=== PATIENT | female | born 1970 | race Caucasian/White ===

== ENCOUNTER 2017-06-03 00:49 | Emergency (ER) | payer MEDICAID ==
[~2017-06-03] VITALS: Ht 160 cm; Wt 78.0 kg
[~2017-06-03 00:49] MED LIST: ALB0.5UD IH; ASPI-1265 PO; CARV-50 PO; CHOL100046 PO; DULO-31 PO; GLIM1TAB46 PO; LISI-600 PO; MULT-955 PO; PANT-47 PO; SUCR1ORA2 PO; SUCR1TAB34 PO; VITA1TAB20 PO
[2017-06-03 01:44] LABS: URINE HCG NEGATIVE (NEG)
[2017-06-03 01:45] LABS: CLARITY,URINE SLIGHTLY CLOUDY (Clear); COLOR,URINE AMBER (Yellow); GLUCOSE, URINE NEGATIVE (Neg); KETONES,URINE TRACE mg/dl (Neg); LEUKOCYTE ESTERASE ,URINE NEGATIVE (Neg); NITRITES, URINE NEGATIVE (Neg); OCCULT BLOOD,URINE NEGATIVE (Neg); PROTEIN,URINE TRACE mg/dl (Neg)
[2017-06-03 01:49] LABS: UA COLLECTION TYPE CLN CATCH MIDSTREAM
[2017-06-03 02:00] LABS: BACTERIA,URINE 2+ /HPF (Neg); MUCUS STRANDS MANY /LPF (Neg); RBC,URINE NONE SEEN /HPF (0-2); SQUAMOUS EPITHELIAL CELL,UR MANY /LPF (FEW); WBC,URINE 0-4 /HPF (0-4)
[2017-06-03] MEDS ORDERED: phenazopyridine 100mg tablet PO ONE (02:35)
[2017-06-03] MEDS ORDERED: ketorolac trometh. 30mg/ml inj. IV ONE (02:35)
[2017-06-03] MEDS ORDERED: ondansetron/PF 4mg/2ml inj IV ONE (03:20)
[2017-06-03 03:29] LABS: BASOPHILS % (AUTO) 0.3 % (0-1); EOSINOPHILS # (AUTO) 0.4 X10'3 (0-0.9); EOSINOPHILS % (AUTO) 4.9 % (0-6); HEMOGLOBIN 11.6 g/dl (12.0-16.0); LYMPHOCYTES # (AUTO) 2.9 X10'3 (1.1-4.8); LYMPHOCYTES % (AUTO) 34.4 % (21-51); MEAN CORPUSCULAR HEMOGLOBIN 30.4 PG (27.0-31.0); MEAN CORPUSCULAR HGB CONC 34.2 % (33.0-36.5); MEAN CORPUSCULAR VOLUME 88.9 FL (78-98); MEAN PLATELET VOLUME 7.3 FL (7.4-10.4); MONOCYTES # (AUTO) 0.6 X10'3 (0-0.9); NEUTROPHILS # (AUTO) 4.5 X10'3 (1.8-7.7); NEUTROPHILS % (AUTO) 53.4 % (42-75); PLATELET COUNT 371 X10'3 (140-440); RED BLOOD COUNT 3.82 X10'6 (4.20-5.60); RED CELL DISTRIBUTION WIDTH 13.4 % (11.5-14.5); WHITE BLOOD COUNT 8.5 X10'3 (4.5-11.0)
[2017-06-03 03:30] LABS: CLARITY,URINE CLEAR (Clear); COLOR,URINE AMBER (Yellow); GLUCOSE, URINE NEGATIVE (Neg); KETONES,URINE TRACE mg/dl (Neg); LEUKOCYTE ESTERASE ,URINE NEGATIVE (Neg); NITRITES, URINE NEGATIVE (Neg); OCCULT BLOOD,URINE NEGATIVE (Neg); PH,URINE 5.5 (4.8-8.0); PROTEIN,URINE NEGATIVE (Neg)
[2017-06-03 03:32] LABS: UA COLLECTION TYPE CLN CATCH MIDSTREAM
[2017-06-03 03:39] LABS: ALBUMIN 3.2 G/DL (3.4-5.0); ANION GAP 7 (8-16); BLOOD UREA NITROGEN 15 MG/DL (7-18); BUN/CREATININE RATIO 21.7 (6.6-38.0); CALCIUM 7.9 MG/DL (8.5-10.1); CHLORIDE 108 MMOL/L (99-107); CREATININE 0.69 MG/DL (0.40-0.90); GLUCOSE 211 MG/DL (70-104); POTASSIUM 3.7 MMOL/L (3.5-5.1); SODIUM 140 MMOL/L (135-145); TOTAL CARBON DIOXIDE 24.9 MMOL/L (24-32); eGFR > 90 ML/MIN
[2017-06-03] MEDS ORDERED: IBUP-1984 PO (04:20)
[2017-06-03] MEDS ORDERED: HYDROcodone/acetaminophen 10/325mg tab PO ONE (04:30)
[2017-06-03 04:37] VITALS: BP 106/71
== END 2017-06-03 04:38 | disposition home or self-care (01) ==
LOC: ER 00:50
DX: M54.9 Dorsalgia, unspecified (principal); E11.65 Type 2 diabetes mellitus with hyperglycemia; E11.42 Type 2 diabetes mellitus with diabetic polyneuropathy; I10 Essential (primary) hypertension; J45.909 Unspecified asthma, uncomplicated; K21.9 Gastro-esophageal reflux disease without esophagitis; I49.9 Cardiac arrhythmia, unspecified; Z90.49 Acquired absence of other specified parts of digestive tract; Z98.84 Bariatric surgery status; Z56.0 Unemployment, unspecified; Z88.8 Allergy status to other drugs, medicaments and biological substances; Z79.82 Long term (current) use of aspirin; Z79.899 Other long term (current) drug therapy
CPT/HCPCS: 36415; 80048; 81001; 81003; 81025; 85025; 96374; 96375; 99284; J1885; J2405

== ENCOUNTER 2017-07-06 17:52 | Emergency (ER) | payer MEDICAID ==
[~2017-07-06] VITALS: Ht 160 cm; Wt 78.4 kg
[2017-07-06 18:33] LABS: BASOPHILS % (AUTO) 0.3 % (0-1); EOSINOPHILS # (AUTO) 0.1 X10'3 (0-0.9); EOSINOPHILS % (AUTO) 2.4 % (0-6); HEMATOCRIT 37.8 % (35.0-45.0); HEMOGLOBIN 13.4 g/dl (12.0-16.0); LYMPHOCYTES # (AUTO) 1.3 X10'3 (1.1-4.8); LYMPHOCYTES % (AUTO) 25.9 % (21-51); MEAN CORPUSCULAR HEMOGLOBIN 30.8 PG (27.0-31.0); MEAN CORPUSCULAR HGB CONC 35.5 % (33.0-36.5); MEAN CORPUSCULAR VOLUME 86.7 FL (78-98); MEAN PLATELET VOLUME 6.8 FL (7.4-10.4); MONOCYTES # (AUTO) 0.9 X10'3 (0-0.9); MONOCYTES % (AUTO) 18.3 % (2-12); NEUTROPHILS # (AUTO) 2.6 X10'3 (1.8-7.7); NEUTROPHILS % (AUTO) 53.1 % (42-75); PLATELET COUNT 349 X10'3 (140-440); RED BLOOD COUNT 4.36 X10'6 (4.20-5.60); RED CELL DISTRIBUTION WIDTH 12.9 % (11.5-14.5); WHITE BLOOD COUNT 4.9 X10'3 (4.5-11.0)
[2017-07-06 18:39] LABS: CLARITY,URINE SLIGHTLY CLOUDY (Clear); COLOR,URINE YELLOW (Yellow); GLUCOSE, URINE NEGATIVE (Neg); KETONES,URINE 15 mg/dl (Neg); LEUKOCYTE ESTERASE ,URINE NEGATIVE (Neg); NITRITES, URINE NEGATIVE (Neg); OCCULT BLOOD,URINE NEGATIVE (Neg); PROTEIN,URINE NEGATIVE (Neg); URINE HCG NEGATIVE (NEG)
[2017-07-06 18:44] LABS: INR 0.9 INR; PROTHROMBIN TIME 9.7 SECONDS (9.0-12.0)
[2017-07-06 18:45] LABS: UA COLLECTION TYPE CLN CATCH MIDSTREAM
[2017-07-06 18:48] LABS: MUCUS STRANDS MANY /LPF (Neg); SQUAMOUS EPITHELIAL CELL,UR MANY /LPF (FEW)
[2017-07-06 18:49] LABS: ALANINE AMINOTRANSFERASE 35 U/L (12-78); ALBUMIN 3.6 G/DL (3.4-5.0); ALBUMIN/GLOBULIN RATIO 0.9 (1.1-1.5); ALKALINE PHOSPHATASE 39 IU/L (46-116); ANION GAP 11 (8-16); ASPARTATE AMINO TRANSFERASE 23 U/L (10-37); BILIRUBIN,TOTAL 0.4 MG/DL (0.1-1.0); BLOOD UREA NITROGEN 14 MG/DL (7-18); BUN/CREATININE RATIO 19.4 (6.6-38.0); CALCIUM 8.7 MG/DL (8.5-10.1); CHLORIDE 103 MMOL/L (99-107); CREATININE 0.72 MG/DL (0.40-0.90); GLUCOSE 121 MG/DL (70-104); POTASSIUM 3.4 MMOL/L (3.5-5.1); SODIUM 141 MMOL/L (135-145); TOTAL CARBON DIOXIDE 26.7 MMOL/L (24-32); TOTAL PROTEIN 7.5 G/DL (6.4-8.2); eGFR 88 ML/MIN
[2017-07-06 18:50] LABS: BACTERIA,URINE FEW /HPF (Neg); HYALINE CASTS 0-3 /LPF (NEGATIVE); RBC,URINE 0-2 /HPF (0-2); WBC,URINE 0-4 /HPF (0-4)
[2017-07-06] MEDS ORDERED: ondansetron/PF 4mg/2ml inj IV ONE (20:55)
[2017-07-06] MEDS ORDERED: normal saline 1000ml 1,000 ML IV ONE (20:55)
[2017-07-06] MEDS ORDERED: metoclopramide 5 mg/ml inj IM ONE (21:30)
[2017-07-06] MEDS ORDERED: ONDA8TAB6 PO (21:36)
[2017-07-06 21:48] VITALS: BP 135/77
== END 2017-07-06 22:12 | disposition home or self-care (01) ==
LOC: ER 17:52
DX: J06.9 Acute upper respiratory infection, unspecified (principal); M54.5 Low back pain; E11.42 Type 2 diabetes mellitus with diabetic polyneuropathy; I49.9 Cardiac arrhythmia, unspecified; I10 Essential (primary) hypertension; J45.909 Unspecified asthma, uncomplicated; K21.9 Gastro-esophageal reflux disease without esophagitis; Z90.49 Acquired absence of other specified parts of digestive tract; Z98.84 Bariatric surgery status; Z56.0 Unemployment, unspecified; Z88.8 Allergy status to other drugs, medicaments and biological substances; Z79.82 Long term (current) use of aspirin; Z79.899 Other long term (current) drug therapy
CPT/HCPCS: 36415; 80053; 81001; 81025; 85025; 85610; 96361; 96372; 96374; 99284; J2405; J2765; J7030

== ENCOUNTER 2017-08-25 14:06 | Emergency (ER) | payer MEDICAID ==
[~2017-08-25] VITALS: Ht 162.6 cm; Wt 70.0 kg
[~2017-08-25 14:06] MED LIST changes: +ONDA8TAB6 PO
[2017-08-25 14:22] VITALS: BP 124/69
[2017-08-25 14:58] LABS: BASOPHILS % (AUTO) 0.2 % (0-1); EOSINOPHILS # (AUTO) 0.4 X10'3 (0-0.9); EOSINOPHILS % (AUTO) 4.2 % (0-6); HEMATOCRIT 41.1 % (35.0-45.0); HEMOGLOBIN 14.2 g/dl (12.0-16.0); LYMPHOCYTES # (AUTO) 2.9 X10'3 (1.1-4.8); MEAN CORPUSCULAR HGB CONC 34.6 % (33.0-36.5); MEAN CORPUSCULAR VOLUME 89.6 FL (78-98); MEAN PLATELET VOLUME 7.3 FL (7.4-10.4); MONOCYTES # (AUTO) 0.6 X10'3 (0-0.9); MONOCYTES % (AUTO) 5.9 % (2-12); NEUTROPHILS % (AUTO) 60.7 % (42-75); PLATELET COUNT 435 X10'3 (140-440); RED BLOOD COUNT 4.59 X10'6 (4.20-5.60); RED CELL DISTRIBUTION WIDTH 12.1 % (11.5-14.5); WHITE BLOOD COUNT 9.9 X10'3 (4.5-11.0)
[2017-08-25 15:16] LABS: ALANINE AMINOTRANSFERASE 25 U/L (12-78); ALBUMIN 4.1 G/DL (3.4-5.0); ALBUMIN/GLOBULIN RATIO 1.1 (1.1-1.5); ALKALINE PHOSPHATASE 58 IU/L (46-116); ASPARTATE AMINO TRANSFERASE 19 U/L (10-37); BILIRUBIN,TOTAL 0.4 MG/DL (0.1-1.0); BLOOD UREA NITROGEN 17 MG/DL (7-18); BUN/CREATININE RATIO 23.3 (6.6-38.0); CHLORIDE 102 MMOL/L (99-107); CREATININE 0.73 MG/DL (0.40-0.90); LIPASE 219 U/L (73-393); POTASSIUM 3.7 MMOL/L (3.5-5.1); TOTAL CARBON DIOXIDE 26.3 MMOL/L (24-32); TOTAL PROTEIN 7.9 G/DL (6.4-8.2); eGFR 86 ML/MIN
[2017-08-25 15:18] LABS: ANION GAP 14 (8-16); GLUCOSE 133 MG/DL (70-104); SODIUM 142 MMOL/L (135-145)
[2017-08-25 15:26] LABS: CLARITY,URINE CLEAR (Clear); COLOR,URINE YELLOW (Yellow); GLUCOSE, URINE NEGATIVE (Neg); KETONES,URINE 40 mg/dl (Neg); LEUKOCYTE ESTERASE ,URINE NEGATIVE (Neg); NITRITES, URINE NEGATIVE (Neg); OCCULT BLOOD,URINE NEGATIVE (Neg); PH,URINE 5.5 (4.8-8.0); PROTEIN,URINE NEGATIVE (Neg)
[2017-08-25 15:27] LABS: URINE HCG NEGATIVE (NEG)
[2017-08-25 15:32] LABS: UA COLLECTION TYPE CLN CATCH MIDSTREAM
[2017-08-25] MEDS ORDERED: ondansetron/PF 4mg/2ml inj IV ONE (15:35)
[2017-08-25] MEDS ORDERED: morphine 4 MG/ML inj SYRINge IV ONE (15:35)
[2017-08-25] MEDS ORDERED: normal saline 1000ML IV soln IVB ONE (15:35)
[2017-08-25] MEDS ORDERED: ONDA4TAB9 PO (15:55)
[2017-08-25] MEDS ORDERED: HYDR-3965 PO (15:55)
[2017-08-25] MEDS ORDERED: HYDROcodone/acetaminophen 10/325mg tab PO ONE (16:30)
[2017-08-25] MEDS ORDERED: ondansetron 4mg rapidly disintigrating tab PO ONE (16:30)
== END 2017-08-25 16:51 | disposition home or self-care (01) ==
LOC: ER 14:07
DX: G89.29 Other chronic pain (principal); R10.9 Unspecified abdominal pain; Z90.49 Acquired absence of other specified parts of digestive tract; I10 Essential (primary) hypertension; J45.909 Unspecified asthma, uncomplicated; K21.9 Gastro-esophageal reflux disease without esophagitis; E11.42 Type 2 diabetes mellitus with diabetic polyneuropathy; Z88.8 Allergy status to other drugs, medicaments and biological substances; Z79.82 Long term (current) use of aspirin; Z79.899 Other long term (current) drug therapy; Z56.0 Unemployment, unspecified
CPT/HCPCS: 36415; 74176; 80053; 81003; 81025; 83690; 85025; 99285; J2270; J2405; J7030

== ENCOUNTER 2017-09-25 14:31 | Emergency (ER) | payer MEDICAID ==
[~2017-09-25 14:31] MED LIST changes: +HYDR-3965 PO; +ONDA4TAB9 PO
[2017-09-25] MEDS ORDERED: CYCL-1 PO (15:34)
[2017-09-25] MEDS ORDERED: orphenadrine citrate 60mg/2ml inj. IM ONE (15:35)
[2017-09-25] MEDS ORDERED: ketorolac trometh inj. 60 MG/2 ML VIAL IM ONE (15:35)
[2017-09-25 15:55] VITALS: BP 125/89
== END 2017-09-25 15:58 | disposition home or self-care (01) ==
LOC: ER 14:32
DX: S63.616A Unspecified sprain of right little finger, initial encounter (principal); G89.29 Other chronic pain; M25.511 Pain in right shoulder; I10 Essential (primary) hypertension; J45.909 Unspecified asthma, uncomplicated; E11.42 Type 2 diabetes mellitus with diabetic polyneuropathy; K21.9 Gastro-esophageal reflux disease without esophagitis; Z88.8 Allergy status to other drugs, medicaments and biological substances; Z79.82 Long term (current) use of aspirin; Z79.899 Other long term (current) drug therapy; Z90.49 Acquired absence of other specified parts of digestive tract; Z56.0 Unemployment, unspecified; W10.8XXA Fall (on) (from) other stairs and steps, initial encounter; Y93.89 Activity, other specified; Y92.89 Other specified places as the place of occurrence of the external cause; Y99.8 Other external cause status
CPT/HCPCS: 29130; 73130; 96372; 99284; J1885; J2360

== ENCOUNTER 2017-11-21 16:16 | Emergency (ER) | payer MEDICAID ==
[~2017-11-21] VITALS: Ht 160 cm; Wt 76.4 kg
[~2017-11-21 16:16] MED LIST changes: +CYCL-1 PO; -HYDR-3965 PO; -ONDA4TAB9 PO
[2017-11-21] MEDS ORDERED: famotidine/PF 10 mg/ml inj IV ONE (16:40)
[2017-11-21] MEDS ORDERED: ketorolac trometh. 30mg/ml inj. IV ONE (16:40)
[2017-11-21] MEDS ORDERED: normal saline 1000ML IV soln IVB ONE (16:40)
[2017-11-21] MEDS ORDERED: ondansetron/PF 4mg/2ml inj IV ONE (16:40)
[2017-11-21 16:50] LABS: BASOPHILS % (AUTO) 0.5 % (0-1); EOSINOPHILS # (AUTO) 0.4 X10'3 (0-0.9); EOSINOPHILS % (AUTO) 4.7 % (0-6); HEMOGLOBIN 12.1 g/dl (12.0-16.0); LYMPHOCYTES # (AUTO) 3.7 X10'3 (1.1-4.8); LYMPHOCYTES % (AUTO) 45.8 % (21-51); MEAN CORPUSCULAR HEMOGLOBIN 30.2 PG (27.0-31.0); MEAN CORPUSCULAR HGB CONC 34.5 % (33.0-36.5); MEAN CORPUSCULAR VOLUME 87.7 FL (78-98); MEAN PLATELET VOLUME 6.8 FL (7.4-10.4); MONOCYTES # (AUTO) 0.6 X10'3 (0-0.9); MONOCYTES % (AUTO) 6.9 % (2-12); NEUTROPHILS # (AUTO) 3.4 X10'3 (1.8-7.7); NEUTROPHILS % (AUTO) 42.1 % (42-75); PLATELET COUNT 396 X10'3 (140-440); RED BLOOD COUNT 3.99 X10'6 (4.20-5.60); RED CELL DISTRIBUTION WIDTH 12.9 % (11.5-14.5)
[2017-11-21 17:05] LABS: ALANINE AMINOTRANSFERASE 22 U/L (12-78); ALBUMIN 3.6 G/DL (3.4-5.0); ALBUMIN/GLOBULIN RATIO 1.1 (1.1-1.5); ALKALINE PHOSPHATASE 42 IU/L (46-116); ANION GAP 8 (8-16); ASPARTATE AMINO TRANSFERASE 11 U/L (10-37); BILIRUBIN,TOTAL 0.3 MG/DL (0.1-1.0); BLOOD UREA NITROGEN 14 MG/DL (7-18); BUN/CREATININE RATIO 20.9 (6.6-38.0); CALCIUM 8.3 MG/DL (8.5-10.1); CHLORIDE 103 MMOL/L (99-107); CREATININE 0.67 MG/DL (0.40-0.90); GLUCOSE 103 MG/DL (70-104); LIPASE 165 U/L (73-393); POTASSIUM 3.8 MMOL/L (3.5-5.1); SODIUM 140 MMOL/L (135-145); TOTAL CARBON DIOXIDE 29.1 MMOL/L (24-32); eGFR > 90 ML/MIN
[2017-11-21] MEDS ORDERED: mag hydrox/Alum hydrox/simeth 30ml oral suspension PO ONE (17:45)
[2017-11-21] MEDS ORDERED: LIDOcaine Viscous 15ml cup PO ONE (17:45)
[2017-11-21] MEDS ORDERED: sucralfate 1 gm tablet PO ONE (17:45)
[2017-11-21] MEDS ORDERED: ONDA4TAB9 PO (17:46)
[2017-11-21] MEDS ORDERED: SUCR1TAB34 PO (17:46)
[2017-11-21] MEDS ORDERED: PANT20TA3 PO (17:46)
[2017-11-21] MEDS: morphine 4 MG/ML inj SYRINge IV PRN ×2 (17:51→20:54)
[2017-11-21 19:52] VITALS: BP 168/94
[2017-11-21 20:51] LABS: CLARITY,URINE CLEAR (Clear); GLUCOSE, URINE NEGATIVE (Neg); KETONES,URINE NEGATIVE (Neg); LEUKOCYTE ESTERASE ,URINE NEGATIVE (Neg); NITRITES, URINE NEGATIVE (Neg); OCCULT BLOOD,URINE NEGATIVE (Neg); PROTEIN,URINE NEGATIVE (Neg)
[2017-11-21 20:57] LABS: COLOR,URINE DARK YELLOW (Yellow); UA COLLECTION TYPE CLN CATCH MIDSTREAM
== END 2017-11-21 21:13 | disposition home or self-care (01) ==
LOC: ER 16:17
DX: R10.13 Epigastric pain (principal); R10.11 Right upper quadrant pain; E78.00 Pure hypercholesterolemia, unspecified; I10 Essential (primary) hypertension; J45.909 Unspecified asthma, uncomplicated; K21.9 Gastro-esophageal reflux disease without esophagitis; E11.42 Type 2 diabetes mellitus with diabetic polyneuropathy; Z98.84 Bariatric surgery status; Z56.0 Unemployment, unspecified; Z79.82 Long term (current) use of aspirin; Z90.49 Acquired absence of other specified parts of digestive tract; Z79.899 Other long term (current) drug therapy; Z88.6 Allergy status to analgesic agent
CPT/HCPCS: 36415; 71045; 76705; 80053; 81003; 83690; 84484; 85025; 93005; 96374; 96375; 96376; 99285; J1885; J2270; J3490; J7030; J2405

== ENCOUNTER 2018-03-26 09:23 | Emergency (ER) | payer MEDICAID ==
[~2018-03-26] VITALS: Ht 162.6 cm; Wt 79.8 kg
[~2018-03-26 09:23] MED LIST changes: +PANT20TA3 PO
[2018-03-26 10:15] LABS: URINE HCG NEGATIVE (NEG)
[2018-03-26] MEDS ORDERED: normal saline 1000ML IV soln IVB ONE (10:20)
[2018-03-26] MEDS ORDERED: ketorolac tromethamine 15mg/ml inj. IV ONE (10:20)
[2018-03-26] MEDS ORDERED: ondansetron/PF 4mg/2ml inj IV ONE ×3 (10:20→13:45)
[2018-03-26] MEDS ORDERED: ketorolac trometh. 30mg/ml inj. IV ONE (10:50)
[2018-03-26 11:02] LABS: BASOPHILS % (AUTO) 0.3 % (0-1); EOSINOPHILS # (AUTO) 0.3 X10'3 (0-0.9); EOSINOPHILS % (AUTO) 2.7 % (0-6); HEMATOCRIT 38.6 % (35.0-45.0); LYMPHOCYTES % (AUTO) 17.6 % (21-51); MEAN CORPUSCULAR HEMOGLOBIN 30.3 PG (27.0-31.0); MEAN CORPUSCULAR HGB CONC 33.6 % (33.0-36.5); MEAN CORPUSCULAR VOLUME 90.1 FL (78-98); MEAN PLATELET VOLUME 7.7 FL (7.4-10.4); MONOCYTES # (AUTO) 0.6 X10'3 (0-0.9); MONOCYTES % (AUTO) 4.9 % (2-12); NEUTROPHILS # (AUTO) 8.5 X10'3 (1.8-7.7); NEUTROPHILS % (AUTO) 74.5 % (42-75); PLATELET COUNT 385 X10'3 (140-440); RED BLOOD COUNT 4.28 X10'6 (4.20-5.60); RED CELL DISTRIBUTION WIDTH 12.7 % (11.5-14.5); WHITE BLOOD COUNT 11.4 X10'3 (4.5-11.0)
--- NOTE | 2018-03-26 11:19 | NUR ---
PT TO THE BATHROOM TO GIVE URINE SAMPLE. I CALLED LAB AND THEY REPORTED THAT THE FIRST URINE SAMPLE DID NO HAVE ENOUGH URINE IN IT FOR A URINALYSIS, DR ROBISON NOTIFIED.
[2018-03-26 11:25] LABS: ALANINE AMINOTRANSFERASE 25 U/L (12-78); ALBUMIN 3.8 G/DL (3.4-5.0); ALKALINE PHOSPHATASE 41 IU/L (46-116); ANION GAP 13 (8-16); ASPARTATE AMINO TRANSFERASE 14 U/L (10-37); BILIRUBIN,TOTAL 0.5 MG/DL (0.1-1.0); BLOOD UREA NITROGEN 10 MG/DL (7-18); BUN/CREATININE RATIO 15.6 (6.6-38.0); CALCIUM 8.5 MG/DL (8.5-10.1); CHLORIDE 102 MMOL/L (99-107); CREATININE 0.64 MG/DL (0.40-0.90); GLUCOSE 143 MG/DL (70-104); POTASSIUM 4.1 MMOL/L (3.5-5.1); SODIUM 141 MMOL/L (135-145); TOTAL CARBON DIOXIDE 25.8 MMOL/L (24-32); TOTAL PROTEIN 7.5 G/DL (6.4-8.2); eGFR > 90 ML/MIN
[2018-03-26 11:32] LABS: CLARITY,URINE CLOUDY (Clear); COLOR,URINE ORANGE (Yellow); UA COLLECTION TYPE CLN CATCH MIDSTREAM
[2018-03-26 12:00] LABS: BACTERIA,URINE FEW /HPF (Neg); WBC,URINE 50-100 /HPF (0-4)
[2018-03-26 12:01] LABS: SQUAMOUS EPITHELIAL CELL,UR FEW /LPF (FEW)
[2018-03-26 12:02] LABS: RENAL CELLS, URINE FEW /HPF; TRANSITIONAL EPI CELLS,URINE FEW /HPF; WBC CLUMPS,URINE FEW /HPF (NEGATIVE)
[2018-03-26] MEDS ORDERED: CefTRIAXone/D5W-Rocephin 1gm 50 ML IV ONE (12:10)
[2018-03-26] MEDS ORDERED: morphine 4 MG/ML inj SYRINge IV ONE ×2 (12:15→13:45)
--- NOTE | 2018-03-26 12:58 | NUR ---
PT TO CT.
[2018-03-26] MEDS ORDERED: CEPH500C5 PO (13:46)
[2018-03-26] MEDS ORDERED: ONDA4TAB12 PO (13:46)
[2018-03-26] MEDS ORDERED: ACET-3067 PO (13:46)
[2018-03-26 15:08] VITALS: BP 132/71
== END 2018-03-26 15:10 | disposition home or self-care (01) ==
LOC: ER 09:24
DX: N83.291 Other ovarian cyst, right side (principal); N10 Acute pyelonephritis; E11.42 Type 2 diabetes mellitus with diabetic polyneuropathy; E78.00 Pure hypercholesterolemia, unspecified; I10 Essential (primary) hypertension; J45.909 Unspecified asthma, uncomplicated; K21.9 Gastro-esophageal reflux disease without esophagitis; Z90.49 Acquired absence of other specified parts of digestive tract; Z56.0 Unemployment, unspecified; Z98.84 Bariatric surgery status; Z88.6 Allergy status to analgesic agent; Z79.82 Long term (current) use of aspirin; Z79.899 Other long term (current) drug therapy
CPT/HCPCS: 36415; 71045; 74176; 80053; 81001; 81025; 83605; 84145; 85025; 87040; 87088; 96365; 96375; 96376; 99284; J0696; J1885; J2270; J2405; J7030

== ENCOUNTER 2018-04-03 20:46 | Emergency (ER) | payer MEDICAID ==
[~2018-04-03] VITALS: Ht 162.6 cm; Wt 82.9 kg
[~2018-04-03 20:46] MED LIST changes: +CEPH500C5 PO; +ONDA4TAB12 PO
[2018-04-03 21:39] LABS: URINE HCG NEGATIVE (NEG)
[2018-04-03 21:43] LABS: CLARITY,URINE CLEAR (Clear); COLOR,URINE YELLOW (Yellow); GLUCOSE, URINE 250 mg/dl (Neg); KETONES,URINE TRACE mg/dl (Neg); LEUKOCYTE ESTERASE ,URINE NEGATIVE (Neg); NITRITES, URINE NEGATIVE (Neg); OCCULT BLOOD,URINE NEGATIVE (Neg); PROTEIN,URINE NEGATIVE (Neg); UA COLLECTION TYPE CLN CATCH MIDSTREAM
[2018-04-03 22:42] LABS: BASOPHILS % (AUTO) 0.4 % (0-1); EOSINOPHILS # (AUTO) 0.4 X10'3 (0-0.9); EOSINOPHILS % (AUTO) 5.3 % (0-6); HEMATOCRIT 35.5 % (35.0-45.0); LYMPHOCYTES # (AUTO) 3.4 X10'3 (1.1-4.8); LYMPHOCYTES % (AUTO) 47.7 % (21-51); MEAN CORPUSCULAR HEMOGLOBIN 30.2 PG (27.0-31.0); MEAN CORPUSCULAR HGB CONC 33.9 % (33.0-36.5); MEAN PLATELET VOLUME 6.9 FL (7.4-10.4); MONOCYTES # (AUTO) 0.5 X10'3 (0-0.9); MONOCYTES % (AUTO) 7.7 % (2-12); NEUTROPHILS # (AUTO) 2.8 X10'3 (1.8-7.7); NEUTROPHILS % (AUTO) 38.9 % (42-75); PLATELET COUNT 392 X10'3 (140-440); RED BLOOD COUNT 3.99 X10'6 (4.20-5.60); RED CELL DISTRIBUTION WIDTH 13.5 % (11.5-14.5); WHITE BLOOD COUNT 7.1 X10'3 (4.5-11.0)
[2018-04-03] MEDS ORDERED: ondansetron 4mg rapidly disintigrating tab PO ONE (22:55)
[2018-04-03] MEDS ORDERED: HYDROcodone/acetaminophen 10/325mg tab PO ONE (22:55)
[2018-04-03] MEDS ORDERED: phenazopyridine 100mg tablet PO ONE (22:55)
[2018-04-03 22:59] LABS: ALANINE AMINOTRANSFERASE 24 U/L (12-78); ALBUMIN 3.3 G/DL (3.4-5.0); ALKALINE PHOSPHATASE 53 IU/L (46-116); ANION GAP 7 (8-16); ASPARTATE AMINO TRANSFERASE 12 U/L (10-37); BILIRUBIN,TOTAL 0.3 MG/DL (0.1-1.0); BLOOD UREA NITROGEN 13 MG/DL (7-18); BUN/CREATININE RATIO 16.5 (6.6-38.0); CHLORIDE 105 MMOL/L (99-107); CREATININE 0.79 MG/DL (0.40-0.90); GLUCOSE 215 MG/DL (70-104); SODIUM 142 MMOL/L (135-145); TOTAL CARBON DIOXIDE 29.7 MMOL/L (24-32); TOTAL PROTEIN 6.5 G/DL (6.4-8.2); eGFR 79 ML/MIN
[2018-04-03] MEDS ORDERED: SULF1TAB49 PO (23:11)
[2018-04-03 23:25] VITALS: BP 134/84
== END 2018-04-03 23:29 | disposition home or self-care (01) ==
LOC: ER 20:47
DX: R10.30 Lower abdominal pain, unspecified (principal); M54.5 Low back pain; E11.42 Type 2 diabetes mellitus with diabetic polyneuropathy; E78.00 Pure hypercholesterolemia, unspecified; I10 Essential (primary) hypertension; J45.909 Unspecified asthma, uncomplicated; K21.9 Gastro-esophageal reflux disease without esophagitis; Z90.49 Acquired absence of other specified parts of digestive tract; Z98.0 Intestinal bypass and anastomosis status; Z98.890 Other specified postprocedural states; Z56.0 Unemployment, unspecified; Z88.8 Allergy status to other drugs, medicaments and biological substances; Z79.82 Long term (current) use of aspirin; Z79.2 Long term (current) use of antibiotics; Z79.899 Other long term (current) drug therapy
CPT/HCPCS: 36415; 80053; 81003; 81025; 84145; 85025; 99284

== ENCOUNTER 2018-05-15 16:25 | Emergency (ER) | payer MEDICAID ==
[~2018-05-15] VITALS: Ht 160 cm; Wt 81.0 kg
[~2018-05-15 16:25] MED LIST changes: -CEPH500C5 PO
[2018-05-15] MEDS ORDERED: HYDROcodone/acetaminophen 5mg/325mg tablet PO ONE (16:50)
[2018-05-15 17:12] LABS: BASOPHILS % (AUTO) 0.6 % (0-1); EOSINOPHILS # (AUTO) 0.4 X10'3 (0-0.9); EOSINOPHILS % (AUTO) 5.6 % (0-6); HEMATOCRIT 35.1 % (35.0-45.0); HEMOGLOBIN 12.3 g/dl (12.0-16.0); LYMPHOCYTES # (AUTO) 2.8 X10'3 (1.1-4.8); LYMPHOCYTES % (AUTO) 37.7 % (21-51); MEAN CORPUSCULAR HEMOGLOBIN 30.7 PG (27.0-31.0); MEAN CORPUSCULAR HGB CONC 35.1 g/dL (33.0-36.5); MEAN CORPUSCULAR VOLUME 87.6 FL (78-98); MEAN PLATELET VOLUME 6.8 FL (7.4-10.4); MONOCYTES # (AUTO) 0.5 X10'3 (0-0.9); MONOCYTES % (AUTO) 7.1 % (2-12); NEUTROPHILS # (AUTO) 3.6 X10'3 (1.8-7.7); PLATELET COUNT 397 X10'3 (140-440); RED BLOOD COUNT 4.01 X10'6 (4.20-5.60); RED CELL DISTRIBUTION WIDTH 12.4 % (11.5-14.5); WHITE BLOOD COUNT 7.4 X10'3 (4.5-11.0)
[2018-05-15 17:25] LABS: CLARITY,URINE CLEAR (Clear); COLOR,URINE YELLOW (Yellow); GLUCOSE, URINE NEGATIVE (Neg); KETONES,URINE 40 mg/dl (Neg); LEUKOCYTE ESTERASE ,URINE NEGATIVE (Neg); NITRITES, URINE NEGATIVE (Neg); OCCULT BLOOD,URINE NEGATIVE (Neg); PROTEIN,URINE NEGATIVE (Neg); UA COLLECTION TYPE CLN CATCH MIDSTREAM; URINE HCG NEGATIVE (NEG)
[2018-05-15 17:41] LABS: ALANINE AMINOTRANSFERASE 16 U/L (12-78); ALBUMIN 3.7 G/DL (3.4-5.0); ALBUMIN/GLOBULIN RATIO 1.1 (1.1-1.5); ALKALINE PHOSPHATASE 53 IU/L (46-116); ANION GAP 11 (8-16); ASPARTATE AMINO TRANSFERASE 8 U/L (10-37); BILIRUBIN,TOTAL 0.2 MG/DL (0.1-1.0); BLOOD UREA NITROGEN 20 MG/DL (7-18); BUN/CREATININE RATIO 29.4 (6.6-38.0); CALCIUM 8.9 MG/DL (8.5-10.1); CHLORIDE 106 MMOL/L (99-107); CREATININE 0.68 MG/DL (0.40-0.90); GLUCOSE 127 MG/DL (70-104); POTASSIUM 3.7 MMOL/L (3.5-5.1); SODIUM 142 MMOL/L (135-145); TOTAL CARBON DIOXIDE 25.3 MMOL/L (24-32); TOTAL PROTEIN 7.2 G/DL (6.4-8.2); eGFR > 90 ML/MIN
[2018-05-15 17:45] VITALS: BP 131/71
== END 2018-05-15 17:53 | disposition home or self-care (01) ==
LOC: ER 16:25
DX: R10.11 Right upper quadrant pain (principal); R10.31 Right lower quadrant pain; E78.00 Pure hypercholesterolemia, unspecified; I10 Essential (primary) hypertension; K21.9 Gastro-esophageal reflux disease without esophagitis; J45.909 Unspecified asthma, uncomplicated; E11.40 Type 2 diabetes mellitus with diabetic neuropathy, unspecified; Z88.8 Allergy status to other drugs, medicaments and biological substances; Z79.82 Long term (current) use of aspirin; Z79.899 Other long term (current) drug therapy; Z56.0 Unemployment, unspecified; Z87.440 Personal history of urinary (tract) infections; Z90.49 Acquired absence of other specified parts of digestive tract; Z98.84 Bariatric surgery status
CPT/HCPCS: 36415; 74018; 80053; 81003; 81025; 85025; 99284

== ENCOUNTER 2018-06-20 15:19 | Emergency (ER) | payer MEDICAID ==
[~2018-06-20] VITALS: Ht 162.6 cm; Wt 77.3 kg
[2018-06-20 16:22] LABS: CLARITY,URINE CLEAR (Clear); COLOR,URINE STRAW (Yellow); GLUCOSE, URINE NEGATIVE (Neg); KETONES,URINE 15 mg/dl (Neg); LEUKOCYTE ESTERASE ,URINE NEGATIVE (Neg); NITRITES, URINE NEGATIVE (Neg); OCCULT BLOOD,URINE NEGATIVE (Neg); PH,URINE 5.5 (4.8-8.0); PROTEIN,URINE NEGATIVE (Neg); UROBILINOGEN,URINE 0.2 E.U/dL (0.2-1.0)
[2018-06-20 16:24] LABS: UA COLLECTION TYPE CLN CATCH MIDSTREAM
[2018-06-20 16:25] LABS: BASOPHILS # (AUTO) 0.1 X10'3 (0-0.2); BASOPHILS % (AUTO) 0.7 % (0-1); EOSINOPHILS # (AUTO) 0.4 X10'3 (0-0.9); EOSINOPHILS % (AUTO) 4.9 % (0-6); HEMATOCRIT 40.6 % (35.0-45.0); LYMPHOCYTES # (AUTO) 3.5 X10'3 (1.1-4.8); MEAN CORPUSCULAR HEMOGLOBIN 29.9 PG (27.0-31.0); MEAN CORPUSCULAR HGB CONC 34.4 g/dL (33.0-36.5); MEAN PLATELET VOLUME 7.3 FL (7.4-10.4); MONOCYTES # (AUTO) 0.6 X10'3 (0-0.9); NEUTROPHILS # (AUTO) 4.1 X10'3 (1.8-7.7); NEUTROPHILS % (AUTO) 47.4 % (42-75); PLATELET COUNT 420 X10'3 (140-440); RED BLOOD COUNT 4.67 X10'6 (4.20-5.60); RED CELL DISTRIBUTION WIDTH 12.9 % (11.5-14.5); WHITE BLOOD COUNT 8.7 X10'3 (4.5-11.0)
[2018-06-20 16:38] LABS: ALANINE AMINOTRANSFERASE 24 U/L (12-78); ALBUMIN/GLOBULIN RATIO 1.1 (1.1-1.5); ALKALINE PHOSPHATASE 44 IU/L (46-116); AMYLASE 57 U/L (25-115); ANION GAP 8 (8-16); ASPARTATE AMINO TRANSFERASE 13 U/L (10-37); BILIRUBIN,TOTAL 0.3 MG/DL (0.1-1.0); BLOOD UREA NITROGEN 17 MG/DL (7-18); BUN/CREATININE RATIO 23.3 (6.6-38.0); CALCIUM 9.3 MG/DL (8.5-10.1); CHLORIDE 102 MMOL/L (99-107); CREATININE 0.73 MG/DL (0.40-0.90); GLUCOSE 125 MG/DL (70-104); LIPASE 300 U/L (73-393); SODIUM 138 MMOL/L (135-145); TOTAL CARBON DIOXIDE 28.2 MMOL/L (24-32); TOTAL PROTEIN 7.7 G/DL (6.4-8.2); eGFR 86 ML/MIN
[2018-06-20 16:40] LABS: INR 0.9 INR; PROTHROMBIN TIME 9.4 SECONDS (9.0-12.0)
[2018-06-20] MEDS ORDERED: ZOLP10TA PO (17:28)
[2018-06-20] MEDS ORDERED: morphine 4 MG/ML inj SYRINge IV ONE (17:30)
[2018-06-20] MEDS ORDERED: normal saline 1000ML IV soln IVB ONE (17:30)
[2018-06-20] MEDS ORDERED: LORazepam 2 mg/ml vial IV ONE (17:30)
[2018-06-20] MEDS ORDERED: pantoprazole 40 MG vial IV ONE (17:30)
[2018-06-20] MEDS ORDERED: morphine 2 MG/ML inj. syringe IV PRN (17:30)
[2018-06-20] MEDS ORDERED: ondansetron/PF 4mg/2ml inj IV ONE (17:30)
[2018-06-20] MEDS ORDERED: PANT20TA3 PO (17:31)
[2018-06-20 18:30] VITALS: BP 135/88
--- NOTE | 2018-06-20 22:04 | NUR ---
Heidi rush in EDM - 06/20/18 at 2222 by MARIA E PATIENT ELOPED CALLED WALLY PHONE # LEFT MESSAGE STATING YOU HAVE ELOPED WITH AN IV PLEASE COME BACK TO HAVE IT DC'D AND TO RECEIVING TANK OPERATOR ABX PERSCRIPTION FOR ED DX
== END 2018-06-20 19:41 | disposition home or self-care (01) ==
LOC: ER 15:19
DX: G89.29 Other chronic pain (principal); R10.11 Right upper quadrant pain; R10.31 Right lower quadrant pain; E78.00 Pure hypercholesterolemia, unspecified; I10 Essential (primary) hypertension; G62.9 Polyneuropathy, unspecified; J45.909 Unspecified asthma, uncomplicated; K21.9 Gastro-esophageal reflux disease without esophagitis; E11.9 Type 2 diabetes mellitus without complications; Z90.49 Acquired absence of other specified parts of digestive tract; Z98.890 Other specified postprocedural states; Z56.0 Unemployment, unspecified; Z88.8 Allergy status to other drugs, medicaments and biological substances; Z79.899 Other long term (current) drug therapy
CPT/HCPCS: 36415; 74018; 80053; 81003; 82150; 83690; 85025; 85610; 96374; 96375; 96376; 99284; C9113; J2060; J2270; J2405; J7030

== ENCOUNTER 2018-06-24 13:30 | Emergency (ER) | payer MEDICAID ==
[~2018-06-24] VITALS: Ht 165.1 cm; Wt 75.0 kg
[~2018-06-24 13:30] MED LIST changes: -ALB0.5UD IH; -CYCL-1 PO; -DULO-31 PO; -ONDA4TAB12 PO; -ONDA8TAB6 PO; -PANT-47 PO; -SUCR1ORA2 PO; -SUCR1TAB34 PO; +ZOLP10TA PO
[2018-06-24] MEDS ORDERED: ondansetron 4mg rapidly disintigrating tab PO ONE (14:30)
[2018-06-24] MEDS ORDERED: HYDROcodone/acetaminophen 10/325mg tab PO ONE (14:30)
[2018-06-24 14:41] VITALS: BP 120/64
== END 2018-06-24 14:43 | disposition home or self-care (01) ==
LOC: ER 13:31
DX: G89.29 Other chronic pain (principal); R10.11 Right upper quadrant pain; R10.31 Right lower quadrant pain; R11.0 Nausea; E11.42 Type 2 diabetes mellitus with diabetic polyneuropathy; I49.9 Cardiac arrhythmia, unspecified; E78.00 Pure hypercholesterolemia, unspecified; I10 Essential (primary) hypertension; J45.909 Unspecified asthma, uncomplicated; K21.9 Gastro-esophageal reflux disease without esophagitis; Z90.49 Acquired absence of other specified parts of digestive tract; Z98.84 Bariatric surgery status; Z56.0 Unemployment, unspecified; Z88.8 Allergy status to other drugs, medicaments and biological substances; Z79.82 Long term (current) use of aspirin; Z79.899 Other long term (current) drug therapy
CPT/HCPCS: 99283

== ENCOUNTER 2018-11-05 19:40 | Emergency (ER) | payer MEDICAID ==
[~2018-11-05] VITALS: Ht 160 cm; Wt 79.6 kg
[~2018-11-05 19:40] MED LIST changes: +GLIM1TAB3 PO; -GLIM1TAB46 PO; +ONDA8TAB6 PO
[2018-11-05 19:51] VITALS: BP 119/73
[2018-11-05] MEDS ORDERED: morphine 4 MG/ML inj SYRINge IM ONE (20:30)
== END 2018-11-05 20:57 | disposition home or self-care (01) ==
LOC: ER 19:41
DX: S40.011A Contusion of right shoulder, initial encounter (principal); I10 Essential (primary) hypertension; E11.40 Type 2 diabetes mellitus with diabetic neuropathy, unspecified; E78.00 Pure hypercholesterolemia, unspecified; K21.9 Gastro-esophageal reflux disease without esophagitis; J45.909 Unspecified asthma, uncomplicated; G89.29 Other chronic pain; F41.9 Anxiety disorder, unspecified; F32.9 Major depressive disorder, single episode, unspecified; Z90.49 Acquired absence of other specified parts of digestive tract; Z56.0 Unemployment, unspecified; Z88.8 Allergy status to other drugs, medicaments and biological substances; Z79.82 Long term (current) use of aspirin; W22.8XXA Striking against or struck by other objects, initial encounter; Y93.89 Activity, other specified; Y92.89 Other specified places as the place of occurrence of the external cause; Y99.8 Other external cause status
CPT/HCPCS: 73030; 96372; 99283; J2270

== ENCOUNTER 2018-11-14 09:32 | Emergency (ER) | payer MEDICAID, OTHER ==
[~2018-11-14] VITALS: Ht 160 cm; Wt 77.3 kg
[2018-11-14] MEDS ORDERED: acetaminophen 325mg tablet PO ONE (10:05)
[2018-11-14] MEDS ORDERED: triamcinolone acetonide 40mg/ml inj IM ONE (10:05)
[2018-11-14] MEDS ORDERED: LIDOcaine 5% patch TP ONE (10:20)
[2018-11-14] MEDS ORDERED: cyclobenzaprine 10mg tablet PO ONE (10:45)
--- NOTE | 2018-11-14 11:41 | NUR ---
PATIENT ASKING FOR A WORK NOTE; AWAITING NOTE FROM FRANCISCO JAVIER JACKSON
[2018-11-14 11:55] VITALS: BP 127/75
[2018-11-15] MEDS ORDERED: ORPH100T2 PO (14:17)
[2018-11-15] MEDS ORDERED: HYDR-4353 PO (14:17)
[2018-11-15] MEDS ORDERED: ONDA8TAB6 PO (14:17)
== END 2018-11-14 12:01 | disposition home or self-care (01) ==
LOC: ER 09:32
DX: M25.511 Pain in right shoulder (principal); M75.31 Calcific tendinitis of right shoulder; M54.2 Cervicalgia; G89.29 Other chronic pain; X58.XXXA Exposure to other specified factors, initial encounter; Y93.89 Activity, other specified; Y92.410 Unspecified street and highway as the place of occurrence of the external cause; Y99.8 Other external cause status
CPT/HCPCS: 72040; 73030; 96372; 99284; J3301

== ENCOUNTER 2018-11-15 12:47 | Emergency (ER) | payer MEDICAID, OTHER ==
[~2018-11-15] VITALS: Ht 160 cm; Wt 79.0 kg
[2018-11-15] MEDS ORDERED: ondansetron 4mg rapidly disintigrating tab PO ONE (13:30)
[2018-11-15] MEDS ORDERED: ketorolac trometh inj. 60 MG/2 ML VIAL IM ONE (13:30)
[2018-11-15] MEDS ORDERED: orphenadrine citrate 60mg/2ml inj. IM ONE (13:30)
[2018-11-15] MEDS ORDERED: HYDROcodone/acetaminophen 10/325mg tab PO ONE (14:10)
[2018-11-15] MEDS ORDERED: ORPH100T2 PO (14:17)
[2018-11-15] MEDS ORDERED: ONDA8TAB6 PO (14:17)
[2018-11-15] MEDS ORDERED: HYDR-4353 PO (14:17)
[2018-11-15 14:29] VITALS: BP 131/69
== END 2018-11-15 15:09 | disposition home or self-care (01) ==
LOC: ER 12:47
DX: S16.1XXA Strain of muscle, fascia and tendon at neck level, initial encounter (principal); S39.012A Strain of muscle, fascia and tendon of lower back, initial encounter; S29.012A Strain of muscle and tendon of back wall of thorax, initial encounter; E78.00 Pure hypercholesterolemia, unspecified; I10 Essential (primary) hypertension; J45.909 Unspecified asthma, uncomplicated; K21.9 Gastro-esophageal reflux disease without esophagitis; E11.42 Type 2 diabetes mellitus with diabetic polyneuropathy; G89.29 Other chronic pain; Z56.0 Unemployment, unspecified; Z90.49 Acquired absence of other specified parts of digestive tract; Z98.84 Bariatric surgery status; Z88.6 Allergy status to analgesic agent; Z79.82 Long term (current) use of aspirin; Z79.899 Other long term (current) drug therapy; V49.88XA Car occupant (driver) (passenger) injured in other specified transport accidents, initial encounter; Y93.89 Activity, other specified; Y92.413 State road as the place of occurrence of the external cause; Y99.9 Unspecified external cause status
CPT/HCPCS: 96372; 99283; J1885; J2360

== ENCOUNTER 2018-12-03 18:42 | Emergency (ER) | payer MEDICAID ==
[~2018-12-03] VITALS: Ht 160 cm; Wt 80.9 kg
[~2018-12-03 18:42] MED LIST changes: +HYDR-4353 PO; +ORPH100T2 PO
[2018-12-03 19:19] VITALS: BP 133/75
[2018-12-03] MEDS ORDERED: ketorolac trometh inj. 60 MG/2 ML VIAL IM ONE (20:25)
[2018-12-03] MEDS ORDERED: orphenadrine citrate 60mg/2ml inj. IM ONE (20:25)
== END 2018-12-03 20:37 | disposition home or self-care (01) ==
LOC: ER 18:42
DX: S16.1XXA Strain of muscle, fascia and tendon at neck level, initial encounter (principal); R51 Headache; E11.42 Type 2 diabetes mellitus with diabetic polyneuropathy; E78.00 Pure hypercholesterolemia, unspecified; I10 Essential (primary) hypertension; J45.909 Unspecified asthma, uncomplicated; K21.9 Gastro-esophageal reflux disease without esophagitis; G89.29 Other chronic pain; F41.9 Anxiety disorder, unspecified; F32.9 Major depressive disorder, single episode, unspecified; Z90.49 Acquired absence of other specified parts of digestive tract; Z56.0 Unemployment, unspecified; Z98.84 Bariatric surgery status; Z88.8 Allergy status to other drugs, medicaments and biological substances; Z79.82 Long term (current) use of aspirin; Z79.899 Other long term (current) drug therapy; V49.69XA Unspecified car occupant injured in collision with other motor vehicles in traffic accident, initial encounter; Y93.89 Activity, other specified; Y92.488 Other paved roadways as the place of occurrence of the external cause; Y99.8 Other external cause status
CPT/HCPCS: 96372; 99283; J1885; J2360

== ENCOUNTER 2018-12-17 15:22 | Emergency (ER) | payer MEDICAID ==
[~2018-12-17] VITALS: Ht 160 cm; Wt 77.3 kg
[2018-12-17 15:42] VITALS: BP 142/74
[2018-12-17] MEDS ORDERED: triamcinolone acetonide 40mg/ml inj IM ONE (16:30)
[2018-12-17] MEDS ORDERED: dexamethasone 4mg/ml inj IM ONE (16:30)
== END 2018-12-17 16:51 | disposition home or self-care (01) ==
LOC: ER 15:23
DX: L23.7 Allergic contact dermatitis due to plants, except food (principal); E78.00 Pure hypercholesterolemia, unspecified; I10 Essential (primary) hypertension; J45.909 Unspecified asthma, uncomplicated; K21.9 Gastro-esophageal reflux disease without esophagitis; G89.29 Other chronic pain; E11.42 Type 2 diabetes mellitus with diabetic polyneuropathy; Z90.49 Acquired absence of other specified parts of digestive tract; Z56.0 Unemployment, unspecified; Z98.84 Bariatric surgery status; Z88.6 Allergy status to analgesic agent; Z79.82 Long term (current) use of aspirin; Z79.899 Other long term (current) drug therapy
CPT/HCPCS: 96372; 99283; J1100; J3301

== ENCOUNTER 2018-12-21 19:30 | Emergency (ER) | payer MEDICAID ==
[~2018-12-21] VITALS: Ht 160 cm; Wt 77.0 kg
[~2018-12-21 19:30] MED LIST changes: -HYDR-4353 PO
[2018-12-21 19:45] VITALS: BP 125/88
[2018-12-21] MEDS ORDERED: PRED20TA PO (20:30)
[2018-12-21] MEDS ORDERED: predniSONE 20 mg tablet PO ONE (20:30)
== END 2018-12-21 20:44 | disposition home or self-care (01) ==
LOC: ER 19:31
DX: L23.7 Allergic contact dermatitis due to plants, except food (principal); E11.42 Type 2 diabetes mellitus with diabetic polyneuropathy; E78.00 Pure hypercholesterolemia, unspecified; I10 Essential (primary) hypertension; J45.909 Unspecified asthma, uncomplicated; K21.9 Gastro-esophageal reflux disease without esophagitis; G89.29 Other chronic pain; F41.9 Anxiety disorder, unspecified; F32.9 Major depressive disorder, single episode, unspecified; Z90.49 Acquired absence of other specified parts of digestive tract; Z98.84 Bariatric surgery status; Z56.0 Unemployment, unspecified; Z88.8 Allergy status to other drugs, medicaments and biological substances; Z79.82 Long term (current) use of aspirin; Z79.899 Other long term (current) drug therapy
CPT/HCPCS: 99283; J7512

== ENCOUNTER 2019-01-17 09:48 | Emergency (ER) | payer MEDICAID ==
[~2019-01-17] VITALS: Ht 160 cm; Wt 78.0 kg
[2019-01-17 10:10] LABS: CLARITY,URINE CLOUDY (Clear); COLOR,URINE ORANGE (Yellow); UA COLLECTION TYPE CLN CATCH MIDSTREAM
[2019-01-17 10:11] LABS: URINE HCG NEGATIVE (NEG)
[2019-01-17] MEDS ORDERED: ketorolac tromethamine 15mg/ml inj. IV ONE (10:15)
[2019-01-17] MEDS ORDERED: normal saline 1000ml 1,000 ML IV ONE (10:15)
[2019-01-17 10:17] LABS: WBC,URINE TNTC /HPF (0-4)
[2019-01-17 10:18] LABS: BACTERIA,URINE 1+ /HPF (Neg); HYALINE CASTS 0-3 /LPF (NEGATIVE); MUCUS STRANDS MODERATE /LPF (Neg); RBC,URINE 0-2 /HPF (0-2); SQUAMOUS EPITHELIAL CELL,UR FEW /LPF (FEW); TRANSITIONAL EPI CELLS,URINE FEW /HPF
[2019-01-17] MEDS ORDERED: CEPH-572 PO (10:40)
[2019-01-17] MEDS ORDERED: CefTRIAXone inj 250 MG in normal saline 50ml IV soln 50 ML IV ONE (10:40)
[2019-01-17 12:06] VITALS: BP 135/82
== END 2019-01-17 12:08 | disposition home or self-care (01) ==
LOC: ER 09:49
DX: N39.0 Urinary tract infection, site not specified (principal); E78.00 Pure hypercholesterolemia, unspecified; I10 Essential (primary) hypertension; J45.909 Unspecified asthma, uncomplicated; K21.9 Gastro-esophageal reflux disease without esophagitis; R11.2 Nausea with vomiting, unspecified; G89.29 Other chronic pain; E11.42 Type 2 diabetes mellitus with diabetic polyneuropathy; Z90.49 Acquired absence of other specified parts of digestive tract; Z56.0 Unemployment, unspecified; Z98.84 Bariatric surgery status; Z88.6 Allergy status to analgesic agent; Z79.82 Long term (current) use of aspirin; Z79.899 Other long term (current) drug therapy
CPT/HCPCS: 81001; 81025; 87088; 96361; 96365; 96375; 99283; J0696; J1885; J7030

== ENCOUNTER 2019-08-11 20:48 | Emergency (ER) | payer MEDICAID ==
[~2019-08-11] VITALS: Ht 160 cm; Wt 86.2 kg
[~2019-08-11 20:48] MED LIST changes: +AMA1T PO; -GLIM1TAB3 PO
[2019-08-11] MEDS ORDERED: morphine 4 MG/ML inj SYRINge IM ONE (22:25)
[2019-08-11] MEDS ORDERED: ondansetron 4mg rapidly disintigrating tab PO ONE (22:25)
[2019-08-11 23:10] VITALS: BP 149/88
== END 2019-08-11 23:16 | disposition home or self-care (01) ==
LOC: ER 20:49
DX: M25.511 Pain in right shoulder (principal); G89.29 Other chronic pain; E11.42 Type 2 diabetes mellitus with diabetic polyneuropathy; E78.00 Pure hypercholesterolemia, unspecified; I10 Essential (primary) hypertension; J45.909 Unspecified asthma, uncomplicated; K21.9 Gastro-esophageal reflux disease without esophagitis; F41.9 Anxiety disorder, unspecified; F32.9 Major depressive disorder, single episode, unspecified; Z90.49 Acquired absence of other specified parts of digestive tract; Z98.0 Intestinal bypass and anastomosis status; Z56.0 Unemployment, unspecified; Z79.82 Long term (current) use of aspirin; Z79.899 Other long term (current) drug therapy
CPT/HCPCS: 96372; 99283; J2270

== ENCOUNTER 2019-11-05 08:27 | Emergency (ER) | payer MEDICAID ==
[~2019-11-05] VITALS: Ht 160 cm; Wt 79.5 kg
[2019-11-05] MEDS ORDERED: HYDROcodone/acetaminophen 10/325mg tab PO STA (08:46)
[2019-11-05 09:45] VITALS: BP 132/68
== END 2019-11-05 09:47 | disposition home or self-care (01) ==
LOC: ER 08:27
DX: S82.62XA Displaced fracture of lateral malleolus of left fibula, initial encounter for closed fracture (principal); E11.42 Type 2 diabetes mellitus with diabetic polyneuropathy; E78.00 Pure hypercholesterolemia, unspecified; I10 Essential (primary) hypertension; J45.909 Unspecified asthma, uncomplicated; K21.9 Gastro-esophageal reflux disease without esophagitis; G89.29 Other chronic pain; F41.9 Anxiety disorder, unspecified; F32.9 Major depressive disorder, single episode, unspecified; Z90.49 Acquired absence of other specified parts of digestive tract; Z56.0 Unemployment, unspecified; Z98.84 Bariatric surgery status; Z88.8 Allergy status to other drugs, medicaments and biological substances; Z79.82 Long term (current) use of aspirin; Z79.899 Other long term (current) drug therapy; X50.1XXA Overexertion from prolonged static or awkward postures, initial encounter; Y93.89 Activity, other specified; Y92.89 Other specified places as the place of occurrence of the external cause; Y99.8 Other external cause status
CPT/HCPCS: 73610; 99283

== ENCOUNTER 2020-01-12 17:09 | Emergency (ER) | payer MEDICAID ==
[~2020-01-12] VITALS: Ht 160 cm; Wt 77.3 kg
[~2020-01-12 17:09] MED LIST changes: +PANT20TA18 PO; -PANT20TA3 PO
[2020-01-12 17:16] VITALS: BP 122/69
[2020-01-12 17:43] LABS: CLARITY,URINE SLIGHTLY CLOUDY (Clear); COLOR,URINE ORANGE (Yellow); PH,URINE 5.5 (4.8-8.0)
[2020-01-12 17:44] LABS: UA COLLECTION TYPE CLN CATCH MIDSTREAM
[2020-01-12 17:51] LABS: MUCUS STRANDS FEW /LPF (Neg); SQUAMOUS EPITHELIAL CELL,UR MANY /LPF (FEW)
[2020-01-12 17:53] LABS: WBC,URINE 50-100 /HPF (0-4)
[2020-01-12 17:54] LABS: BACTERIA,URINE 1+ /HPF (Neg)
[2020-01-12] MEDS ORDERED: cephalexin 250mg capsule PO ONE (18:30)
[2020-01-12] MEDS ORDERED: CEPH-572 PO (18:30)
== END 2020-01-12 18:48 | disposition home or self-care (01) ==
LOC: ER 17:10
DX: N10 Acute pyelonephritis (principal); R30.9 Painful micturition, unspecified; R05 Cough; R10.84 Generalized abdominal pain; E11.42 Type 2 diabetes mellitus with diabetic polyneuropathy; E78.00 Pure hypercholesterolemia, unspecified; I10 Essential (primary) hypertension; J45.909 Unspecified asthma, uncomplicated; K21.9 Gastro-esophageal reflux disease without esophagitis; G89.29 Other chronic pain; F41.9 Anxiety disorder, unspecified; F32.9 Major depressive disorder, single episode, unspecified; Z87.440 Personal history of urinary (tract) infections; Z90.49 Acquired absence of other specified parts of digestive tract; Z98.890 Other specified postprocedural states; Z56.0 Unemployment, unspecified; Z88.8 Allergy status to other drugs, medicaments and biological substances; Z79.82 Long term (current) use of aspirin; Z79.899 Other long term (current) drug therapy
CPT/HCPCS: 81001; 99283

== ENCOUNTER 2020-01-15 07:13 | Inpatient (IN) | payer MEDICAID ==
[~2020-01-15] VITALS: Ht 160 cm; Wt 77.3 kg
[~2020-01-15 07:13] MED LIST changes: +CEPH-572 PO
[2020-01-15] MEDS ORDERED: levoFLOXACIN-Levaquin 750MG/D5 150 ML IV ONE (07:35)
[2020-01-15] MEDS ORDERED: normal saline 1000ML IV soln IV ONE (07:35)
[2020-01-15 08:05] LABS: URINE HCG NEGATIVE (NEG)
[2020-01-15 08:07] LABS: CLARITY,URINE SLIGHTLY CLOUDY (Clear); COLOR,URINE YELLOW (Yellow); GLUCOSE, URINE NEGATIVE (Neg); KETONES,URINE NEGATIVE (Neg); LEUKOCYTE ESTERASE ,URINE TRACE (Neg); NITRITES, URINE NEGATIVE (Neg); OCCULT BLOOD,URINE NEGATIVE (Neg); PH,URINE 5.5 (4.8-8.0); PROTEIN,URINE NEGATIVE (Neg); UROBILINOGEN,URINE 0.2 E.U/dL (0.2-1.0)
[2020-01-15 08:11] LABS: UA COLLECTION TYPE CLN CATCH MIDSTREAM
[2020-01-15 08:16] LABS: SQUAMOUS EPITHELIAL CELL,UR MANY /LPF (FEW)
[2020-01-15 08:17] LABS: BACTERIA,URINE FEW /HPF (Neg); RBC,URINE 0-2 /HPF (0-2); WBC,URINE 0-4 /HPF (0-4)
--- NOTE | 2020-01-15 08:18 | NUR ---
PT OUT TO CT VIA HUAN WITH INVESTIGATOR WELFARE
--- NOTE | 2020-01-15 08:24 | NUR ---
PT RETURNS FROM CT
[2020-01-15 08:38] LABS: BASOPHILS % (AUTO) 0.3 % (0-1); EOSINOPHILS % (AUTO) 0.4 % (0-6); HEMATOCRIT 37.6 % (35.0-45.0); HEMOGLOBIN 12.7 g/dl (12.0-16.0); LYMPHOCYTES # (AUTO) 0.9 X10'3 (1.1-4.8); LYMPHOCYTES % (AUTO) 27.4 % (21-51); MEAN CORPUSCULAR HEMOGLOBIN 29.6 PG (27.0-31.0); MEAN CORPUSCULAR HGB CONC 33.7 g/dL (33.0-36.5); MEAN CORPUSCULAR VOLUME 87.9 FL (78-98); MONOCYTES # (AUTO) 0.6 X10'3 (0-0.9); NEUTROPHILS # (AUTO) 1.7 X10'3 (1.8-7.7); NEUTROPHILS % (AUTO) 53.9 % (42-75); PLATELET COUNT 315 X10'3 (140-440); RED BLOOD COUNT 4.28 X10'6 (4.20-5.60); RED CELL DISTRIBUTION WIDTH 12.5 % (11.5-14.5); WHITE BLOOD COUNT 3.2 X10'3 (4.5-11.0)
[2020-01-15] MEDS ORDERED: morphine 4 MG/ML inj SYRINge IV PRN (08:45)
[2020-01-15] MEDS ORDERED: ondansetron/PF 4mg/2ml inj IV ONE (08:45)
[2020-01-15 08:53] LABS: ALANINE AMINOTRANSFERASE 18 U/L (12-78); ALBUMIN 3.7 G/DL (3.4-5.0); ALBUMIN/GLOBULIN RATIO 0.9 (1.1-1.5); ALKALINE PHOSPHATASE 50 IU/L (46-116); ANION GAP 9 (8-16); ASPARTATE AMINO TRANSFERASE 14 U/L (10-37); BILIRUBIN,TOTAL 0.3 MG/DL (0.1-1.0); BLOOD UREA NITROGEN 10 MG/DL (7-18); BUN/CREATININE RATIO 12.5 (6.6-38.0); CALCIUM 9.2 MG/DL (8.5-10.1); CHLORIDE 103 MMOL/L (99-107); GLUCOSE 176 MG/DL (70-104); LIPASE 118 U/L (73-393); POTASSIUM 3.7 MMOL/L (3.5-5.1); SODIUM 138 MMOL/L (135-145); TOTAL PROTEIN 7.6 G/DL (6.4-8.2); eGFR 77 ML/MIN
[2020-01-15 09:35] LABS: CLARITY,URINE CLEAR (Clear); COLOR,URINE YELLOW (Yellow); GLUCOSE, URINE NEGATIVE (Neg); KETONES,URINE NEGATIVE (Neg); LEUKOCYTE ESTERASE ,URINE NEGATIVE (Neg); NITRITES, URINE NEGATIVE (Neg); OCCULT BLOOD,URINE NEGATIVE (Neg); PH,URINE 5.5 (4.8-8.0); PROTEIN,URINE NEGATIVE (Neg); UROBILINOGEN,URINE 0.2 E.U/dL (0.2-1.0)
[2020-01-15 09:36] LABS: UA COLLECTION TYPE STRAIGHT CATH
[2020-01-15] MEDS ORDERED: MESSAGE TO PHARMACY PO ONE (10:00)
[2020-01-15] MEDS ORDERED: dextrose ORAL solution 15 GM/59 ML bottle PO PRN ×2 (10:00)
[2020-01-15] MEDS ORDERED: magnesium 2GM in 50ml NS 50 ML IV PRN (10:00)
[2020-01-15] MEDS ORDERED: mag hydrox/Alum hydrox/simeth 30ml oral suspension PO PRN (10:00)
[2020-01-15] MEDS ORDERED: potassium Cl 20 mEq SR tablet PO PRN ×2 (10:00)
[2020-01-15] MEDS ORDERED: dextrose 50%-water 50ml dispensing syringe IV PRN ×2 (10:00)
[2020-01-15] MEDS ORDERED: magnesium hydroxide 30ml (MOM) UD suspension PO PRN (10:00)
[2020-01-15] MEDS ORDERED: ondansetron/PF 4mg/2ml inj IV PRN (10:00)
[2020-01-15] MEDS ORDERED: potassium CL 10mEq/100ml bag 100 ML IV PRN ×2 (10:00)
[2020-01-15] MEDS ORDERED: acetaminophen 325mg tablet PO PRN ×2 (10:00)
[2020-01-15] MEDS ORDERED: insulin Lispro (HumaLOG) vial - multi-dose SQ SCH (10:00)
[2020-01-15] MEDS ORDERED: glucagon, human recombinant 1mg kit SUBCUT PRN (10:00)
[2020-01-15] MEDS ORDERED: magnesium Cl slow-release 64mg tablet PO PRN (10:00)
[2020-01-15] MEDS ORDERED: magnesium 4gm in 100ml NS 100 ML IV PRN (10:00)
[2020-01-15] MEDS ORDERED: HYDROcodone/acetaminophen 5mg/325mg tablet PO PRN (10:00)
[2020-01-15 10:44] LABS: TOTAL CELLS COUNTED 100
[2020-01-15 10:45] LABS: URINE AMPHETAMINE SCREEN NEGATIVE (Neg); URINE BARBITUATE SCREEN NEGATIVE (Neg); URINE BENZODIAZEPINES SCREEN NEGATIVE (Neg); URINE CANNABINOID SCREEN POSITIVE (Neg); URINE COCAINE SCREEN NEGATIVE (Neg); URINE METHADONE SCREEN NEGATIVE (Neg); URINE OPIATE SCREEN POSITIVE (Neg); URINE PHENCYCLIDINE SCREEN NEGATIVE (Neg)
[2020-01-15 10:45] LABS: PLATELET ESTIMATE NORMAL
[2020-01-15] MEDS: HYDROmorphone 1 mg/ml syringe IV PRN ×3 (11:17→20:44)
[2020-01-15] MEDS: normal saline 1000ml 1,000 ML IV SCH ×2 (11:18→20:23)
[2020-01-15] MEDS ORDERED: CARV6.253 PO (12:56)
[2020-01-15] MEDS ORDERED: CEPH500C2 PO (12:59)
[2020-01-15] MEDS ORDERED: TIZA2TAB7 PO (12:59)
[2020-01-15] MEDS ORDERED: HYDR-3972 PO (12:59)
[2020-01-15] MEDS ORDERED: LISI2.5T2 PO (12:59)
[2020-01-15] MEDS ORDERED: PANT40TA54 PO (12:59)
[2020-01-15] MEDS ORDERED: AMA1T PO (13:03)
[2020-01-15] MEDS ORDERED: tizanidine 4mg tablet PO PRN (13:10)
[2020-01-15] MEDS ORDERED: zolpidem 5mg tablet PO PRN (13:10)
--- NOTE | 2020-01-15 15:08 | NUR ---
requested a hospital bed from evs.
[2020-01-15] MEDS: piperacillin/tazo 4.5gm/100ml 100 ML IV SCH ×2 (15:10→16:00)
[2020-01-15] MEDS: HYDROcodone/acetaminophen 10/325mg tab PO PRN (19:25)
--- NOTE | 2020-01-15 19:31 | NUR ---
PATIENT PROVIDED DINNER TRAY GIVEN MEDICATION FOR PAIN
[2020-01-15] MEDS: K and/or MAG REPLACEMENT MC SCH (20:00)
[2020-01-15] MEDS ORDERED: enoxaparin 40mg/0.4ml syringe SQ SCH (20:00)
[2020-01-15] MEDS: carvedilol 6.25mg tablet PO SCH (20:26)
[2020-01-15] MEDS ORDERED: lisinopril 2.5mg tablet PO SCH (21:00)
[2020-01-15] MEDS ORDERED: vitamin B comp w/Vit. C tab 1 TAB TABLET PO SCH (21:00)
[2020-01-15] MEDS ORDERED: aspirin 81mg tab.chew PO SCH (21:00)
[2020-01-15] MEDS ORDERED: vitamin D (cholecalciferol) 1,000 unit tablet PO SCH (21:00)
[2020-01-15] MEDS ORDERED: insulin glargine (Lantus) pen - multi-dose SQ SCH (21:00)
[2020-01-15] MEDS ORDERED: multivitamins, therapeutics tablet PO SCH (21:00)
--- NOTE | 2020-01-15 22:47 | NUR ---
PATIENT IN BED DECREASED PAIN LEVEL REQUESTING CURTAIN AND DOOR TO BE CLOSED FOR REST, RR EVEN UN LABORED NO OBSERVABLE S/S OF ACUTE PAIN/STRESS AT THIS TIME WILL CONTINUE TO MONITOR
--- NOTE | 2020-01-15 23:34 | NUR ---
Patient in room PCU 3028. I have received report from AMIE Monroe and had the opportunity to ask questions and assume patient care. Patient transferred from ED by arnel. Safety measures in place, bed in low and locked position. Call light and personal items within reach. Will continue to monitor for throughout shift.
[2020-01-16 00:35] VITALS: BP 87/49
[2020-01-16] MEDS: piperacillin/tazo 4.5gm/100ml 100 ML IV SCH ×2 (00:54→07:20)
--- NOTE | 2020-01-16 01:05 | NUR ---
Paged Dr. Anthony. Re: Cass Kelley RM: [id number]. Admitted for pyelonephritis. Blood pressure of 82/44. Gave 250ml fluid bolus, no change. Please advise. David [phone]
--- NOTE | 2020-01-16 01:38 | NUR ---
Paged Dr. Anthony RE: Cass Kelley RM: [id number]. BP 86/46. Dizzy, weak. Received 250ml bolus, on 100ml/hr NS. Received blood pressure meds in ER before admit. Should we bolus again? David [phone]
--- NOTE | 2020-01-16 01:49 | NUR ---
Paged Hospitalist Group. RE Allie Odell, RM 3022B. Patient blood pressure 86/44. 250ml bolus given, no change. BP meds given in ER before admit. Please advise. David [phone]
[2020-01-16 02:00] VITALS: BP 102/57
[2020-01-16] MEDS ORDERED: normal saline 1000ml 1,000 ML IV ONE (02:10)
[2020-01-16 05:58] LABS: EOSINOPHILS % (AUTO) 0.3 % (0-6); HEMOGLOBIN 10.6 g/dl (12.0-16.0); MEAN CORPUSCULAR HEMOGLOBIN 29.9 PG (27.0-31.0); MEAN PLATELET VOLUME 7.2 FL (7.4-10.4); MONOCYTES # (AUTO) 0.4 X10'3 (0-0.9); NEUTROPHILS # (AUTO) 0.7 X10'3 (1.8-7.7); RED BLOOD COUNT 3.54 X10'6 (4.20-5.60); RED CELL DISTRIBUTION WIDTH 12.3 % (11.5-14.5); WHITE BLOOD COUNT 3.1 X10'3 (4.5-11.0)
[2020-01-16 06:04] LABS: BASOPHILS % (AUTO) 0.4 % (0-1); HEMATOCRIT 31.3 % (35.0-45.0); LYMPHOCYTES % (AUTO) 64.2 % (21-51); MEAN CORPUSCULAR HGB CONC 33.9 g/dL (33.0-36.5); MEAN CORPUSCULAR VOLUME 88.2 FL (78-98); NEUTROPHILS % (AUTO) 22.1 % (42-75); PLATELET COUNT 243 X10'3 (140-440)
[2020-01-16 06:10] LABS: ALANINE AMINOTRANSFERASE 21 U/L (12-78); ALBUMIN 2.8 G/DL (3.4-5.0); ALBUMIN/GLOBULIN RATIO 0.9 (1.1-1.5); ALKALINE PHOSPHATASE 41 IU/L (46-116); ANION GAP 5 (8-16); ASPARTATE AMINO TRANSFERASE 16 U/L (10-37); BILIRUBIN,TOTAL 0.1 MG/DL (0.1-1.0); BLOOD UREA NITROGEN 7 MG/DL (7-18); BUN/CREATININE RATIO 9.1 (6.6-38.0); CALCIUM 7.9 MG/DL (8.5-10.1); CHLORIDE 109 MMOL/L (99-107); CREATININE 0.77 MG/DL (0.40-0.90); GLUCOSE 223 MG/DL (70-104); MAGNESIUM 1.8 MG/DL (1.5-2.4); POTASSIUM 3.8 MMOL/L (3.5-5.1); SODIUM 142 MMOL/L (135-145); TOTAL CARBON DIOXIDE 27.6 MMOL/L (24-32); eGFR 80 ML/MIN
[2020-01-16] MEDS: normal saline 1000ml 1,000 ML IV SCH (06:20)
--- NOTE | 2020-01-16 06:27 | NUR ---
Orientee documentation: I have reviewed and agree with all interventions, assessments performed and documented by David HOLLOWAY. [place] Medication Administration: For this medication-pass time frame, all medication were reviewed, dispensed, administered and documented per hospital policy by David HOLLOWAY.
--- NOTE | 2020-01-16 06:30 | NUR ---
Problems reprioritized. Patient report given, questions answered & plan of care reviewed with Emelia Tran
--- NOTE | 2020-01-16 06:31 | NUR ---
Patient in room PCU 3028. I have received report from Lula HOLLOWAY and David HOLLOWAY and had the opportunity to ask questions and assume patient care.
[2020-01-16 07:00] VITALS: BP 138/74
[2020-01-16] MEDS: carvedilol 6.25mg tablet PO SCH (07:19)
[2020-01-16] MEDS: HYDROcodone/acetaminophen 10/325mg tab PO PRN ×2 (07:19→11:38)
[2020-01-16 07:28] LABS: TOTAL CELLS COUNTED 100
[2020-01-16 07:29] LABS: PLATELET ESTIMATE NORMAL
[2020-01-16] MEDS: K and/or MAG REPLACEMENT MC SCH (08:00)
[2020-01-16] MEDS ORDERED: pantoprazole 40mg Tablet.DR PO SCH (08:00)
[2020-01-16] MEDS ORDERED: FLU VACC QS2020-21(6MOS UP)/PF 60 MCG/0.5 ML SYRINGE IMVAC ONE (10:50)
[2020-01-16] MEDS ORDERED: AMOX-580 PO (11:22)
--- NOTE | 2020-01-16 12:00 | NUR ---
Patient ok to Discharger per MD orders. Tele was removed, PIV removed, patient tolerated well. Patient was educated on medications and is aware to stop antibiotic to start another. All prescriptions were sent via e escript. Patients items were collected and sent with patient. 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 All vaccinations were given with consent. Patient was able to transfer into wheelchair and escorted out to main lobby via tech to awake personal vehicle and significant other.
--- NOTE | 2020-01-16 12:41 | NUR ---
DM Consult: Pt admitted for kidney infection. Hx of T2DM, A1c 8.0%. RD administration internship met with patient at bedside for verbal/written education, RD contact information provided. Pt reports poor DM management r/t moving and unable to focus on better food choices until fully moved. Pt is aware of better food choices and carb counting. Sees PCP, takes meds, and checks glucose every morning regularly. Reports exercising regularly prior to broken ankle, discussed chair exercises. Will continue to monitor. Addendum: 01/16/20 at [address] Amended: Links added. Addendum: 01/16/20 at [address] RD agree with administration internship note
== END 2020-01-16 12:32 | disposition home or self-care (01) | DRG 463 ==
LOC: ER 07:14 → OBSVTOIN 10:00 → ED HOLD 10:00 → PCU 3S 23:38
PROVIDERS: ADMIT Family Medicine; ATTEND Family Medicine
DX: N10 Acute pyelonephritis (principal); E11.42 Type 2 diabetes mellitus with diabetic polyneuropathy; E78.00 Pure hypercholesterolemia, unspecified; F32.9 Major depressive disorder, single episode, unspecified; I10 Essential (primary) hypertension; J45.909 Unspecified asthma, uncomplicated; Z83.3 Family history of diabetes mellitus; Z79.84 Long term (current) use of oral hypoglycemic drugs; Z87.440 Personal history of urinary (tract) infections; Z87.891 Personal history of nicotine dependence; Z90.49 Acquired absence of other specified parts of digestive tract; Z98.84 Bariatric surgery status; Z23 Encounter for immunization
CPT/HCPCS: 36415; 74176; 80053; 80305; 81001; 81003; 81025; 82948; 83036; 83605; 83690; 83735; 84145; 84439; 84443; 85007; 85025; 87040; 87081; 96365; 99285; G0378; J1170; J1650; J1815; J1956; J2270; J2405; J2543; J7030; Q2039

== ENCOUNTER 2020-08-05 04:50 | Emergency (ER) | payer MEDICAID ==
[~2020-08-05] VITALS: Ht 160 cm; Wt 72.3 kg
[~2020-08-05 04:50] MED LIST changes: +AMOX-580 PO; -CARV-50 PO; +CARV6.253 PO; -CEPH-572 PO; +HYDR-3972 PO; -LISI-600 PO; +LISI2.5T2 PO; -ONDA8TAB6 PO; -ORPH100T2 PO; -PANT20TA18 PO; +PANT40TA54 PO; +TIZA-189 PO
[2020-08-05 05:22] LABS: CLARITY,URINE CLOUDY (Clear); GLUCOSE, URINE 100 mg/dl (Neg); LEUKOCYTE ESTERASE ,URINE SMALL (Neg); OCCULT BLOOD,URINE LARGE (Neg)
[2020-08-05 05:26] LABS: UA COLLECTION TYPE CLN CATCH MIDSTREAM
[2020-08-05 05:29] LABS: COLOR,URINE ORANGE (Yellow)
[2020-08-05 05:32] LABS: WBC,URINE TNTC /HPF (0-4)
[2020-08-05 05:33] LABS: BACTERIA,URINE 1+ /HPF (Neg); RBC,URINE 20-50 /HPF (0-2); SQUAMOUS EPITHELIAL CELL,UR FEW /LPF (FEW)
[2020-08-05] MEDS ORDERED: pantoprazole 40 MG vial IV ONE (05:35)
[2020-08-05] MEDS ORDERED: LORazepam 2 mg/ml vial IV ONE (05:35)
[2020-08-05] MEDS ORDERED: ondansetron/PF 4mg/2ml inj IV ONE ×2 (05:35→07:20)
[2020-08-05] MEDS ORDERED: normal saline 1000ML IV soln IVB ONE (05:35)
[2020-08-05] MEDS: morphine 2 MG/ML inj. syringe IV PRN ×2 (05:54→07:25)
[2020-08-05] MEDS ORDERED: NITR100C6 PO (06:04)
[2020-08-05] MEDS ORDERED: CefTRIAXone/D5W-Rocephin 1gm 50 ML IV ONE (06:05)
[2020-08-05 06:53] LABS: BASOPHILS # (AUTO) 0.1 X10'3 (0-0.2); BASOPHILS % (AUTO) 0.4 % (0-1); EOSINOPHILS # (AUTO) 0.5 X10'3 (0-0.9); EOSINOPHILS % (AUTO) 3.1 % (0-6); HEMATOCRIT 36.4 % (35.0-45.0); HEMOGLOBIN 12.4 g/dl (12.0-16.0); LYMPHOCYTES # (AUTO) 2.4 X10'3 (1.1-4.8); LYMPHOCYTES % (AUTO) 16.3 % (21-51); MEAN CORPUSCULAR HEMOGLOBIN 30.4 PG (27.0-31.0); MEAN CORPUSCULAR HGB CONC 34.2 g/dL (33.0-36.5); MEAN PLATELET VOLUME 7.6 FL (7.4-10.4); MONOCYTES % (AUTO) 6.9 % (2-12); NEUTROPHILS # (AUTO) 10.7 X10'3 (1.8-7.7); NEUTROPHILS % (AUTO) 73.3 % (42-75); PLATELET COUNT 399 X10'3 (140-440); RED BLOOD COUNT 4.09 X10'6 (4.20-5.60); RED CELL DISTRIBUTION WIDTH 13.1 % (11.5-14.5); WHITE BLOOD COUNT 14.6 X10'3 (4.5-11.0)
[2020-08-05 07:11] LABS: ALANINE AMINOTRANSFERASE 26 U/L (12-78); ALBUMIN 3.5 G/DL (3.4-5.0); ALKALINE PHOSPHATASE 58 IU/L (46-116); ANION GAP 9 (8-16); ASPARTATE AMINO TRANSFERASE 14 U/L (10-37); BILIRUBIN,TOTAL 0.2 MG/DL (0.1-1.0); BLOOD UREA NITROGEN 20 MG/DL (7-18); BUN/CREATININE RATIO 16.9 (6.6-38.0); CALCIUM 8.4 MG/DL (8.5-10.1); CHLORIDE 103 MMOL/L (99-107); CREATININE 1.18 MG/DL (0.40-0.90); GLUCOSE 132 MG/DL (70-104); SODIUM 139 MMOL/L (135-145); TOTAL CARBON DIOXIDE 26.7 MMOL/L (24-32); TOTAL PROTEIN 7.1 G/DL (6.4-8.2); eGFR 49 ML/MIN
[2020-08-05 08:16] VITALS: BP 113/58
== END 2020-08-05 08:28 | disposition home or self-care (01) ==
LOC: ER 04:51
DX: N39.0 Urinary tract infection, site not specified (principal); R11.10 Vomiting, unspecified; R10.2 Pelvic and perineal pain; R30.0 Dysuria; R31.9 Hematuria, unspecified; E11.42 Type 2 diabetes mellitus with diabetic polyneuropathy; E78.00 Pure hypercholesterolemia, unspecified; I10 Essential (primary) hypertension; K21.9 Gastro-esophageal reflux disease without esophagitis; G89.29 Other chronic pain; F41.9 Anxiety disorder, unspecified; F32.9 Major depressive disorder, single episode, unspecified; Z87.440 Personal history of urinary (tract) infections; Z90.49 Acquired absence of other specified parts of digestive tract; Z98.890 Other specified postprocedural states; Z56.0 Unemployment, unspecified; Z88.8 Allergy status to other drugs, medicaments and biological substances; Z79.82 Long term (current) use of aspirin; Z79.2 Long term (current) use of antibiotics; Z79.899 Other long term (current) drug therapy
CPT/HCPCS: 36415; 80053; 81001; 83605; 85025; 87077; 87088; 87186; 96365; 96375; 96376; 99284; C9113; J0696; J2060; J2270; J2405; J7030; 96361

== ENCOUNTER 2020-09-17 07:04 | Emergency (ER) | payer MEDICAID ==
[~2020-09-17] VITALS: Ht 160 cm; Wt 79.3 kg
[~2020-09-17 07:04] MED LIST changes: +NITR100C6 PO
[2020-09-17] MEDS ORDERED: ketorolac trometh. 30mg/ml inj. IM ONE (07:25)
[2020-09-17] MEDS ORDERED: ondansetron 4mg rapidly disintigrating tab PO ONE (07:25)
[2020-09-17] MEDS ORDERED: phenazopyridine 100mg tablet PO ONE (07:35)
[2020-09-17 07:37] LABS: CLARITY,URINE CLOUDY (Clear); COLOR,URINE YELLOW (Yellow); GLUCOSE, URINE NEGATIVE (Neg); KETONES,URINE NEGATIVE (Neg); LEUKOCYTE ESTERASE ,URINE LARGE (Neg); NITRITES, URINE NEGATIVE (Neg); OCCULT BLOOD,URINE LARGE (Neg); PROTEIN,URINE 30 mg/dl (Neg)
[2020-09-17 07:38] LABS: UA COLLECTION TYPE CLN CATCH MIDSTREAM; URINE HCG NEGATIVE (NEG)
[2020-09-17 07:47] LABS: SQUAMOUS EPITHELIAL CELL,UR FEW /LPF (FEW)
[2020-09-17 07:50] LABS: WBC,URINE TNTC /HPF (0-4)
[2020-09-17 07:51] LABS: RBC,URINE 20-50 /HPF (0-2)
[2020-09-17 07:52] LABS: TRANSITIONAL EPI CELLS,URINE FEW /HPF
[2020-09-17 07:55] LABS: RENAL CELLS, URINE FEW /HPF
[2020-09-17 07:56] LABS: MUCUS STRANDS FEW /LPF (Neg)
[2020-09-17 08:05] LABS: BACTERIA,URINE 1+ /HPF (Neg); WBC CLUMPS,URINE MODERATE /HPF (NEGATIVE)
[2020-09-17] MEDS ORDERED: CefTRIAXone 1000mg IM Kit (w/lidocaine diluent) IM ONE (08:25)
[2020-09-17] MEDS ORDERED: CEPH-585 PO (08:26)
[2020-09-17] MEDS ORDERED: PHEN-824 PO (08:26)
[2020-09-17] MEDS ORDERED: ONDA4TAB12 PO (08:26)
[2020-09-17 08:54] VITALS: BP 145/67
== END 2020-09-17 08:50 | disposition home or self-care (01) ==
LOC: ER 07:04
DX: N39.0 Urinary tract infection, site not specified (principal); R11.0 Nausea; R10.30 Lower abdominal pain, unspecified; R30.9 Painful micturition, unspecified; E11.42 Type 2 diabetes mellitus with diabetic polyneuropathy; E78.00 Pure hypercholesterolemia, unspecified; I10 Essential (primary) hypertension; J45.909 Unspecified asthma, uncomplicated; K21.9 Gastro-esophageal reflux disease without esophagitis; G89.29 Other chronic pain; F41.9 Anxiety disorder, unspecified; F32.9 Major depressive disorder, single episode, unspecified; Z87.440 Personal history of urinary (tract) infections; Z90.49 Acquired absence of other specified parts of digestive tract; Z98.890 Other specified postprocedural states; Z56.0 Unemployment, unspecified; Z88.8 Allergy status to other drugs, medicaments and biological substances; Z79.2 Long term (current) use of antibiotics; Z79.82 Long term (current) use of aspirin; Z79.899 Other long term (current) drug therapy
CPT/HCPCS: 81001; 81025; 87077; 87088; 87186; 96372; 99284; J0696; J1885

== ENCOUNTER 2022-04-23 19:48 | Emergency (ER) | payer MEDICAID ==
[~2022-04-23] VITALS: Ht 160 cm; Wt 74.1 kg
[~2022-04-23 19:48] MED LIST changes: +ALBU6.7H14 INH; +LISI2.5T14 PO; -LISI2.5T2 PO; +ONDA4TAB12 PO; +PHEN-824 PO
[2022-04-23 19:53] VITALS: BP 142/77
[2022-04-23 20:20] LABS: BASOPHILS # (AUTO) 0.1 X10'3 (0-0.2); BASOPHILS % (AUTO) 0.5 % (0-1); EOSINOPHILS # (AUTO) 0.6 X10'3 (0-0.9); HEMATOCRIT 42.1 % (35.0-45.0); HEMOGLOBIN 14.5 g/dl (12.0-16.0); LYMPHOCYTES # (AUTO) 4.4 X10'3 (1.1-4.8); MEAN CORPUSCULAR HEMOGLOBIN 30.1 PG (27.0-31.0); MEAN CORPUSCULAR HGB CONC 34.4 g/dL (33.0-36.5); MEAN CORPUSCULAR VOLUME 87.6 FL (78-98); MEAN PLATELET VOLUME 6.8 FL (7.4-10.4); MONOCYTES # (AUTO) 0.8 X10'3 (0-0.9); MONOCYTES % (AUTO) 6.9 % (2-12); NEUTROPHILS # (AUTO) 5.5 X10'3 (1.8-7.7); NEUTROPHILS % (AUTO) 48.6 % (42-75); PLATELET COUNT 495 X10'3 (140-440); RED BLOOD COUNT 4.81 X10'6 (4.20-5.60); RED CELL DISTRIBUTION WIDTH 12.9 % (11.5-14.5); WHITE BLOOD COUNT 11.4 X10'3 (4.5-11.0)
[2022-04-23 20:25] LABS: URINE HCG NEGATIVE (NEG)
[2022-04-23 20:33] LABS: ALANINE AMINOTRANSFERASE 21 U/L (12-78); ALBUMIN 4.4 G/DL (3.4-5.0); ALKALINE PHOSPHATASE 74 IU/L (46-116); ANION GAP 6 (8-16); ASPARTATE AMINO TRANSFERASE 14 U/L (10-37); BILIRUBIN,TOTAL 0.4 MG/DL (0.1-1.0); BLOOD UREA NITROGEN 16 MG/DL (7-18); BUN/CREATININE RATIO 21.1 (6.6-38.0); CALCIUM 9.6 MG/DL (8.5-10.1); CHLORIDE 100 MMOL/L (99-107); CREATININE 0.76 MG/DL (0.40-0.90); GLUCOSE 156 MG/DL (70-104); LIPASE 173 U/L (73-393); POTASSIUM 3.6 MMOL/L (3.5-5.1); SODIUM 136 MMOL/L (135-145); TOTAL CARBON DIOXIDE 30.2 MMOL/L (24-32); TOTAL PROTEIN 8.7 G/DL (6.4-8.2); eGFR 81 ML/MIN
[2022-04-23 21:49] LABS: CLARITY,URINE CLOUDY (Clear); COLOR,URINE AMBER (Yellow); GLUCOSE, URINE NEGATIVE (Neg); KETONES,URINE NEGATIVE (Neg); LEUKOCYTE ESTERASE ,URINE MODERATE (Neg); NITRITES, URINE POSITIVE (Neg); OCCULT BLOOD,URINE TRACE-INTACT (Neg); PROTEIN,URINE 100 mg/dl (Neg)
[2022-04-23 21:52] LABS: UA COLLECTION TYPE CLN CATCH MIDSTREAM
[2022-04-23 21:59] LABS: BACTERIA,URINE 2+ /HPF (Neg); RBC,URINE 0-2 /HPF (0-2); WBC,URINE 50-100 /HPF (0-4)
[2022-04-23 22:00] LABS: MUCUS STRANDS FEW /LPF (Neg); SQUAMOUS EPITHELIAL CELL,UR FEW /LPF (FEW)
[2022-04-24] MEDS ORDERED: ketorolac trometh. 30mg/ml inj. IV ONE (01:50)
[2022-04-24] MEDS ORDERED: ondansetron/PF 4mg/2ml inj IV ONE (01:50)
[2022-04-24] MEDS ORDERED: normal saline 1000ML IV soln IVB ONE (01:50)
[2022-04-24] MEDS ORDERED: CefTRIAXone 2gm/D5W 50ml BAG 50 ML IV ONE (01:50)
[2022-04-24] MEDS ORDERED: AMOX-580 PO (03:16)
== END 2022-04-24 05:53 | disposition home or self-care (01) ==
LOC: ER 19:49
DX: N39.0 Urinary tract infection, site not specified (principal); I10 Essential (primary) hypertension; E78.00 Pure hypercholesterolemia, unspecified; G89.29 Other chronic pain; E11.42 Type 2 diabetes mellitus with diabetic polyneuropathy; F41.9 Anxiety disorder, unspecified; K21.9 Gastro-esophageal reflux disease without esophagitis; Z90.49 Acquired absence of other specified parts of digestive tract; Z98.890 Other specified postprocedural states; Z56.0 Unemployment, unspecified; Z88.8 Allergy status to other drugs, medicaments and biological substances; Z79.82 Long term (current) use of aspirin; Z79.899 Other long term (current) drug therapy
CPT/HCPCS: 36415; 80053; 81001; 81025; 83690; 85025; 87088; 87186; 96365; 96375; 99284; J0696; J1885; J2405; J7030; 87077

== ENCOUNTER 2022-12-15 15:08 | Emergency (ER) | payer MEDICAID ==
[~2022-12-15] VITALS: Ht 162.6 cm; Wt 63.6 kg
[2022-12-15 15:51] VITALS: PULSE 79
[2022-12-15 16:19] LABS: BILIRUBIN,URINE NEGATIVE (Neg); CLARITY,URINE CLOUDY (Clear); COLOR,URINE AMBER (Yellow); GLUCOSE, URINE 100 mg/dl (Neg); KETONES,URINE NEGATIVE (Neg); LEUKOCYTE ESTERASE ,URINE NEGATIVE (Neg); OCCULT BLOOD,URINE TRACE-INTACT (Neg); PH,URINE 5.5 (4.8-8.0); PROTEIN,URINE 30 mg/dl (Neg)
[2022-12-15] MEDS ORDERED: ondansetron 4mg rapidly disintigrating tab PO ONE (16:20)
[2022-12-15] MEDS ORDERED: ketorolac tromethamine 15mg/ml inj. IM ONE (16:25)
[2022-12-15 16:36] LABS: UA COLLECTION TYPE CLN CATCH MIDSTREAM
[2022-12-15 16:38] LABS: NITRITES, URINE NEGATIVE (Neg)
[2022-12-15 16:39] LABS: MUCUS STRANDS MANY /LPF (Neg); SQUAMOUS EPITHELIAL CELL,UR MODERATE /LPF (FEW)
[2022-12-15 16:40] LABS: HYALINE CASTS 0-3 /LPF (NEGATIVE)
[2022-12-15 16:41] LABS: BACTERIA,URINE FEW /HPF (Neg); WBC,URINE TNTC /HPF (0-4)
[2022-12-15] MEDS ORDERED: NITR100C6 PO (17:00)
--- NOTE | 2022-12-15 17:09 | NUR ---
pt assessment reviewed by RN
--- NOTE | 2022-12-15 17:15 | NUR ---
pt states 7/10 pain after toradol injection pt has chronic pain of 10 years and was treated for a uti pt instructed to return to ed if worsening symptoms after abx has beeen completed
[2022-12-15 17:17] VITALS: BP 140/97; RESP 16; TEMP 96.6; O2SAT 96
== END 2022-12-15 17:23 | disposition home or self-care (01) ==
LOC: ER 15:09
DX: N39.0 Urinary tract infection, site not specified (principal); E78.00 Pure hypercholesterolemia, unspecified; I10 Essential (primary) hypertension; K21.9 Gastro-esophageal reflux disease without esophagitis; J45.909 Unspecified asthma, uncomplicated; F31.9 Bipolar disorder, unspecified; Z88.5 Allergy status to narcotic agent; Z79.899 Other long term (current) drug therapy
CPT/HCPCS: 81001; 87088; 96372; 99283; J1885

== ENCOUNTER 2023-08-14 22:07 | Emergency (ER) | payer MEDICAID ==
[~2023-08-14] VITALS: Ht 160 cm; Wt 75.0 kg
[2023-08-14 22:12] VITALS: BP 195/98; PULSE 98; RESP 16; TEMP 98.2; O2SAT 98
== END 2023-08-15 03:49 | disposition left against medical advice (07) ==
LOC: ER 22:07
DX: R09.81 Nasal congestion (principal); Z53.21 Procedure and treatment not carried out due to patient leaving prior to being seen by health care provider

== ENCOUNTER → 2023-08-14 | Emergency (ER) | payer MEDICAID ==
[~2023-08-14] VITALS: Ht 160 cm; Wt 75.3 kg
[~2023-08-14] MED LIST changes: +VITA-290 PO; -VITA1TAB20 PO
[2023-08-14 17:37] VITALS: BP 114/64; PULSE 98; RESP 18; TEMP 97.8; O2SAT 99
[2023-08-14 18:37] LABS: BASOPHILS % (AUTO) 0.5 % (0-1); EOSINOPHILS # (AUTO) 0.3 X10'3 (0-0.9); EOSINOPHILS % (AUTO) 3.5 % (0-6); HEMATOCRIT 39.7 % (35.0-45.0); HEMOGLOBIN 13.5 g/dl (12.0-16.0); LYMPHOCYTES # (AUTO) 3.7 X10'3 (1.1-4.8); LYMPHOCYTES % (AUTO) 37.9 % (21-51); MEAN CORPUSCULAR HEMOGLOBIN 30.5 PG (27.0-31.0); MEAN CORPUSCULAR HGB CONC 33.9 g/dL (33.0-36.5); MEAN CORPUSCULAR VOLUME 89.9 FL (78-98); MEAN PLATELET VOLUME 7.1 FL (7.4-10.4); MONOCYTES # (AUTO) 0.6 X10'3 (0-0.9); MONOCYTES % (AUTO) 6.3 % (2-12); NEUTROPHILS % (AUTO) 51.8 % (42-75); PLATELET COUNT 466 X10'3 (140-440); RED BLOOD COUNT 4.42 X10'6 (4.20-5.60); RED CELL DISTRIBUTION WIDTH 12.6 % (11.5-14.5); WHITE BLOOD COUNT 9.6 X10'3 (4.5-11.0)
== END | disposition left against medical advice (07) ==
LOC: ER 17:19
DX: R06.02 Shortness of breath (principal); Z53.21 Procedure and treatment not carried out due to patient leaving prior to being seen by health care provider
CPT/HCPCS: 36415; 71045; 85025

== ENCOUNTER 2023-08-22 20:41 | Emergency (ER) | payer MEDICAID ==
[~2023-08-22] VITALS: Ht 160 cm; Wt 75.0 kg
[2023-08-22 21:28] LABS: BASOPHILS % (AUTO) 0.6 % (0-1); EOSINOPHILS # (AUTO) 0.3 X10'3 (0-0.9); EOSINOPHILS % (AUTO) 3.7 % (0-6); HEMOGLOBIN 12.2 g/dl (12.0-16.0); LYMPHOCYTES % (AUTO) 38.5 % (21-51); MEAN CORPUSCULAR HGB CONC 33.9 g/dL (33.0-36.5); MEAN CORPUSCULAR VOLUME 88.6 FL (78-98); MONOCYTES # (AUTO) 0.5 X10'3 (0-0.9); MONOCYTES % (AUTO) 6.1 % (2-12); NEUTROPHILS % (AUTO) 51.1 % (42-75); PLATELET COUNT 442 X10'3 (140-440); RED BLOOD COUNT 4.07 X10'6 (4.20-5.60); RED CELL DISTRIBUTION WIDTH 12.5 % (11.5-14.5); WHITE BLOOD COUNT 7.8 X10'3 (4.5-11.0)
[2023-08-22 21:30] LABS: BILIRUBIN,URINE NEGATIVE (Neg); CLARITY,URINE CLEAR (Clear); COLOR,URINE YELLOW (Yellow); GLUCOSE, URINE NEGATIVE (Neg); KETONES,URINE NEGATIVE (Neg); LEUKOCYTE ESTERASE ,URINE SMALL (Neg); NITRITES, URINE NEGATIVE (Neg); OCCULT BLOOD,URINE NEGATIVE (Neg); PH,URINE 5.5 (4.8-8.0); PROTEIN,URINE NEGATIVE (Neg); UROBILINOGEN,URINE 0.2 E.U/dL (0.2-1.0)
[2023-08-22 21:37] LABS: UA COLLECTION TYPE NON-SPECIFIED
[2023-08-22 21:39] LABS: APTT 28 SECONDS (22-32); INR 0.9 INR; PROTHROMBIN TIME 9.9 SECONDS (9.0-12.0)
[2023-08-22 21:41] LABS: ALANINE AMINOTRANSFERASE 24 U/L (12-78); ALBUMIN 3.6 G/DL (3.4-5.0); ALBUMIN/GLOBULIN RATIO 0.9 (1.1-1.5); ALKALINE PHOSPHATASE 70 IU/L (46-116); ANION GAP 5 (8-16); ASPARTATE AMINO TRANSFERASE 14 U/L (10-37); BILIRUBIN,TOTAL 0.3 MG/DL (0.1-1.0); BLOOD UREA NITROGEN 13 MG/DL (7-18); BUN/CREATININE RATIO 16.5 (10.0-20.0); CALCIUM 8.7 MG/DL (8.5-10.1); CHLORIDE 105 MMOL/L (99-107); CREATININE 0.79 MG/DL (0.40-0.90); GLUCOSE 219 MG/DL (70-104); LIPASE 53 U/L (16-77); POTASSIUM 3.7 MMOL/L (3.5-5.1); SODIUM 141 MMOL/L (135-145); TOTAL CARBON DIOXIDE 31.3 MMOL/L (24-32); TOTAL PROTEIN 7.5 G/DL (6.4-8.2); eCRCL 70 ML/MIN; eGFR 77 ML/MIN
[2023-08-22 21:45] LABS: BACTERIA,URINE 1+ /HPF (Neg); SQUAMOUS EPITHELIAL CELL,UR MODERATE /LPF (FEW); TRANSITIONAL EPI CELLS,URINE FEW /HPF
[2023-08-22 21:47] LABS: RBC,URINE 0-2 /HPF (0-2); WBC,URINE 50-100 /HPF (0-4)
[2023-08-22 21:48] LABS: WBC CLUMPS,URINE FEW /HPF (NEGATIVE)
[2023-08-23 00:20] VITALS: BP 170/93; PULSE 74; RESP 14; O2SAT 99
[2023-08-23] MEDS ORDERED: CEPH-585 PO (01:20)
[2023-08-23] MEDS: ibuprofen tablet 400 MG TABLET PO ONE (01:54)
[2023-08-23] MEDS: CefTRIAXone 1000mg IM Kit (w/lidocaine diluent) IM ONE (01:54)
[2023-08-23] MEDS: acetaminophen 325mg tablet PO ONE (01:54)
[2023-08-23 02:00] VITALS: TEMP 97.8
== END 2023-08-23 02:01 | disposition home or self-care (01) ==
LOC: ER 20:42
DX: N39.0 Urinary tract infection, site not specified (principal); G62.9 Polyneuropathy, unspecified; E78.00 Pure hypercholesterolemia, unspecified; I10 Essential (primary) hypertension; J45.909 Unspecified asthma, uncomplicated; K21.9 Gastro-esophageal reflux disease without esophagitis; E11.9 Type 2 diabetes mellitus without complications; G89.29 Other chronic pain; M54.9 Dorsalgia, unspecified; F41.9 Anxiety disorder, unspecified; F32.A Depression, unspecified; Z90.49 Acquired absence of other specified parts of digestive tract; Z56.0 Unemployment, unspecified; Z88.8 Allergy status to other drugs, medicaments and biological substances; Z79.2 Long term (current) use of antibiotics; Z79.899 Other long term (current) drug therapy
CPT/HCPCS: 36415; 74176; 80053; 81001; 83690; 85025; 85610; 85730; 87077; 87088; 87186; 96372; 99285; J0696

== ENCOUNTER 2023-09-12 13:58 | Emergency (ER) | payer MEDICAID ==
[~2023-09-12] VITALS: Ht 162.6 cm; Wt 70.0 kg
[2023-09-12 13:59] VITALS: BP 128/54; PULSE 100; RESP 18; TEMP 98.7; O2SAT 95
== END 2023-09-12 15:47 | disposition home or self-care (01) ==
LOC: ER 13:58
DX: M79.672 Pain in left foot (principal); R22.42 Localized swelling, mass and lump, left lower limb; J45.909 Unspecified asthma, uncomplicated; I10 Essential (primary) hypertension; E78.00 Pure hypercholesterolemia, unspecified; G89.29 Other chronic pain; E11.42 Type 2 diabetes mellitus with diabetic polyneuropathy; Z56.0 Unemployment, unspecified; Z88.8 Allergy status to other drugs, medicaments and biological substances; Z79.2 Long term (current) use of antibiotics; Z79.899 Other long term (current) drug therapy
CPT/HCPCS: 73630; 99283; L1930; A6449

== ENCOUNTER 2024-01-23 18:15 | Emergency (ER) | payer MEDICAID ==
[~2024-01-23] VITALS: Ht 160 cm; Wt 77.9 kg
[~2024-01-23 18:15] MED LIST changes: -AMA1T PO; +GLIM1TAB57 PO; +ONDA-243 PO; -ONDA4TAB12 PO
[2024-01-23 20:26] LABS: BILIRUBIN,URINE NEGATIVE (Neg); CLARITY,URINE CLEAR (Clear); COLOR,URINE YELLOW (Yellow); GLUCOSE, URINE NEGATIVE (Neg); KETONES,URINE NEGATIVE (Neg); LEUKOCYTE ESTERASE ,URINE SMALL (Neg); NITRITES, URINE NEGATIVE (Neg); OCCULT BLOOD,URINE NEGATIVE (Neg); PH,URINE 5.5 (4.8-8.0); PROTEIN,URINE NEGATIVE (Neg); UROBILINOGEN,URINE 0.2 E.U/dL (0.2-1.0)
[2024-01-23 20:27] LABS: UA COLLECTION TYPE CLN CATCH MIDSTREAM
[2024-01-23] MEDS: ketorolac trometh 30MG/ML vial 30 MG/ML VIAL IM ONE (20:32)
[2024-01-23 20:33] LABS: BACTERIA,URINE FEW /HPF (Neg); RBC,URINE NONE SEEN /HPF (0-2); SQUAMOUS EPITHELIAL CELL,UR FEW /LPF (FEW)
[2024-01-23] MEDS ORDERED: CEPH-585 PO (20:56)
[2024-01-23] MEDS ORDERED: PHEN-716 PO (20:56)
[2024-01-23] MEDS: phenazopyridine 100mg tablet PO ONE (21:22)
[2024-01-23] MEDS: CefTRIAXone 1000mg IM Kit (w/lidocaine diluent) IM ONE (21:23)
[2024-01-23 21:32] VITALS: BP 151/74; PULSE 84; RESP 18; TEMP 98.6; O2SAT 98
== END 2024-01-23 21:34 | disposition home or self-care (01) ==
LOC: ER 18:16
DX: S80.01XA Contusion of right knee, initial encounter (principal); N39.0 Urinary tract infection, site not specified; E11.42 Type 2 diabetes mellitus with diabetic polyneuropathy; E78.00 Pure hypercholesterolemia, unspecified; I10 Essential (primary) hypertension; J45.909 Unspecified asthma, uncomplicated; K21.9 Gastro-esophageal reflux disease without esophagitis; G89.29 Other chronic pain; F41.9 Anxiety disorder, unspecified; F32.A Depression, unspecified; Z56.0 Unemployment, unspecified; Z79.899 Other long term (current) drug therapy; Z90.49 Acquired absence of other specified parts of digestive tract; Z88.8 Allergy status to other drugs, medicaments and biological substances; W18.39XA Other fall on same level, initial encounter; Y93.89 Activity, other specified; Y92.89 Other specified places as the place of occurrence of the external cause; Y99.8 Other external cause status
CPT/HCPCS: 73552; 73564; 81001; 87088; 96372; 99284; J0696; J1885; 87077; 87186

== ENCOUNTER 2024-02-15 14:50 | Emergency (ER) | payer MEDICAID ==
[~2024-02-15] VITALS: Ht 160 cm; Wt 76.2 kg
[~2024-02-15 14:50] MED LIST changes: +PHEN-716 PO
[2024-02-15 14:59] VITALS: BP 112/79; PULSE 91; TEMP 99.1; O2SAT 98
[2024-02-15 15:36] LABS: CLARITY,URINE CLOUDY (Clear); URINE HCG NEGATIVE (NEG)
[2024-02-15 15:39] LABS: COLOR,URINE ORANGE (Yellow); UA COLLECTION TYPE CLN CATCH MIDSTREAM
[2024-02-15 15:47] LABS: BACTERIA,URINE 2+ /HPF (Neg); SQUAMOUS EPITHELIAL CELL,UR FEW /LPF (FEW); WBC,URINE TNTC /HPF (0-4)
[2024-02-15] MEDS ORDERED: LEVO-65 PO (16:20)
[2024-02-15] MEDS ORDERED: PHEN-716 PO (16:20)
[2024-02-15] MEDS: phenazopyridine 100mg tablet PO ONE (16:25)
[2024-02-15] MEDS: CefTRIAXone 1000mg IM Kit (w/lidocaine diluent) IM ONE (16:25)
[2024-02-15] MEDS: ketorolac trometh 15mg/ml vial 15 MG/ML ML IM ONE (16:25)
[2024-02-15 16:46] VITALS: RESP 18
== END 2024-02-15 16:47 | disposition home or self-care (01) ==
LOC: ER 14:51
DX: N39.0 Urinary tract infection, site not specified (principal); I10 Essential (primary) hypertension; J45.909 Unspecified asthma, uncomplicated; E78.00 Pure hypercholesterolemia, unspecified; E11.42 Type 2 diabetes mellitus with diabetic polyneuropathy; K21.9 Gastro-esophageal reflux disease without esophagitis; Z88.8 Allergy status to other drugs, medicaments and biological substances; Z79.2 Long term (current) use of antibiotics; Z79.899 Other long term (current) drug therapy; Z90.49 Acquired absence of other specified parts of digestive tract; Z98.84 Bariatric surgery status
CPT/HCPCS: 81001; 81025; 87077; 87088; 87186; 96372; 99284; J0696; J1885

== ENCOUNTER 2024-10-23 15:37 | Emergency (ER) | payer MEDICAID ==
[~2024-10-23] VITALS: Ht 160 cm; Wt 72.4 kg
[~2024-10-23 15:37] MED LIST changes: +ZOLP-679 PO; -ZOLP10TA PO
[2024-10-23 16:01] VITALS: BP 104/64; PULSE 88; RESP 16; TEMP 97.7; O2SAT 97
[2024-10-23 16:32] LABS: MEAN PLATELET VOLUME 7.1 FL (7.4-10.4); RED CELL DISTRIBUTION WIDTH 12.9 % (11.5-14.5)
[2024-10-23 16:51] LABS: CREATININE 0.77 MG/DL (0.40-0.90); TOTAL CARBON DIOXIDE 26.2 MMOL/L (24-32); eCRCL 71 ML/MIN; eGFR 79 ML/MIN
[2024-10-24] MEDS ORDERED: ONDA-245 PO (09:21)
[2024-10-24] MEDS ORDERED: SULF1TAB49 PO (09:21)
[2024-10-24] MEDS ORDERED: PHEN-786 PO (09:21)
== END 2024-10-23 18:26 | disposition left against medical advice (07) ==
LOC: ER 15:37
DX: R10.11 Right upper quadrant pain (principal); Z88.8 Allergy status to other drugs, medicaments and biological substances; Z53.21 Procedure and treatment not carried out due to patient leaving prior to being seen by health care provider
CPT/HCPCS: 36415; 80053; 83690; 85025

== ENCOUNTER 2024-10-24 08:05 | Emergency (ER) | payer MEDICAID ==
[~2024-10-24] VITALS: Ht 160 cm; Wt 72.5 kg
--- NOTE | 2024-10-24 08:37 | Physician Documentation ---
History of Present Illness ~ Chief Complaint: Urinary Symptoms Stated Complaint: BLADDER INFECTION Time Seen by MD: 08:22 Primary Medical Doctor: KAREEM LEPE This is a 54-year-old postmenopausal female who presents to the emergency department due to concerns for a urinary tract infection. She notes that she was seen yesterday for this and did have blood work done but was not able to stay for the results as the wait was long. She is a diabetic on both Jardiance and Ozempic. She has been multiple urinary tract infections and multiple courses of antibiotics she just completed a seven day course of Augmentin 95129 that was started on 10/09/2024 prior to that she had a course of Keflex that was started on 08/21/2024 prior to that she had a course of Cipro on 08/14/2024 prior to that she had a course of Macrobid on 06/19/2024 prior to that she had a course of azithromycin on 04/22/2024 and prior to that she had a course of Levaquin on 02/15/2024. The patient does take vaginal estrogen. Because of the Jardiance, she is diligent about rinsing after she urinates. She has no new sexual partners, no vaginal discharge, no concerns for sexually transmitted infection. Has not yet been referred to Urology, although she has asked her primary care previously due to the recurrent nature of her symptoms. She does not endorse fevers today, but does endorse chills and bladder pain. Labs were reviewed from her visit yesterday and reveal completely normal CBC, mildly elevated glucose. Normal kidney function, negative lipase. Medication Reconciliation Allergies: Coded Allergies: diphenhydramine (Unverified Allergy, Unknown, 10/24/24) Scheduled Albuterol Sulfate (Proventil Hfa), 2 PUFFS INH Q6H Amox Tr/Potassium Clavulanate 875/125 MG (Augmentin 875/125 MG), 1 TAB PO BID Aspirin (Aspirin), 1 TAB.CHEW PO HS, (Reported) Carvedilol (Carvedilol), 1 TABLET PO BID, (Reported) Cholecalciferol (Vitamin D3) (Vitamin D), 1 CAP PO HS, (Reported) Glimepiride* (Amaryl*), 1 TAB PO HS, (Reported) Lisinopril (Lisinopril), 1 TAB PO HS, (Reported) Multivitamin (Daily Value), 1 TAB PO HS, (Reported) Nitrofurantoin Monohyd/M-Cryst (Macrobid 100 mg Capsule), 1 CAP PO Q12H Nitrofurantoin Monohyd/M-Cryst (Macrobid 100 mg Capsule), 1 CAP PO Q12H Pantoprazole Sodium (Pantoprazole Sodium), 1 TAB PO DAILY, (Reported) Phenazopyridine HCl (Pyridium), 1 TAB PO Q8H Phenazopyridine HCl (Pyridium), 1 TAB PO Q8H Phenazopyridine HCl (Pyridium), 1 TAB PO Q8H Phenazopyridine Hcl (Pyridium tablet), 1 TAB PO Q8H Sulfamethoxazole/Trimethoprim (Bactrim Ds Tablet), 1 TAB PO Q12H Vitamin B Complex (Vitamin B Complex), 1 EACH PO HS, (Reported) Zolpidem Tartrate (Ambien), 1 TAB PO HSPRN, (Reported) Scheduled PRN Hydrocodone Bit/Acetaminophen (Hydrocodon-Acetaminophn 10-325 tablet), 1 TAB PO Q8H PRN for pain, (Reported) ONDANSETRON ODT 4mg tablet (Ondansetron Odt), 1 TABLET PO Q6H PRN for nausea/vomiting Ondansetron 8mg ODT (Ondansetron Odt), 1 TAB PO TID PRN for nausea/vomiting Tizanidine Hcl (Zanaflex), 1 TAB PO Q8H PRN for muscle spasms, (Reported) Past Medical History Past Medical History: Peripheral Neuropathy, Arrhythmia, High Cholesterol, Hypertension, Asthma, GERD, UTI, Diabetes, Chronic Pain, Anxiety, Depression Past Surgical History: cholecystectomy, gastric bypass Patient History: FH: diabetes mellitus FATHER MOTHER Alcohol Use: Rarely Drug Use: none Lives with: Family Lives In: Home Occupation: unemployed Review of Systems ROS As stated above in the HPI, otherwise all systems are reviewed and negative. Physical Exam Vital Signs: Temperature: 98.1, Source: Oral, Heart Rate: 80, Respiratory Rate: 19, BP: 100/73, Pulse Oximetry: 100, Weight: 72.550 Physical Exam General: Alert, no apparent distress. Neck: Full range of motion. Respiratory: Lungs clear, no respiratory distress. Chest: No accessory muscle use. Cardiovascular: Regular rate and rhythm, no murmurs. Gastrointestinal: Soft, nontender, nondistended. Bowels sounds present. No CVA tenderness Extremities: Normal range of motion, no deformity. Neurologic: Oriented x4. Psychiatric: Normal mood and affect. Skin: Normal color, warm and dry. No edema, no ecchymosis. Progress Results/Orders Results/Orders Orders - CHELSEA ALCANTAR WORKDAY CONSULTANT Chlam/Gc Amp Ur (10/24/24 08:25) Cult Urine + [address] Ct (10/24/24 09:15) Completed Orders - CHELSEA ALCANTAR WORKDAY CONSULTANT Hcg, Ur Ql (10/24/24 08:22) Phenazopyridine Tablet (Pyridium Tablet) (10/24/24 08:35) Ketorolac Trometh 30mg/Ml Vial (Toradol (10/24/24 08:35) Ondansetron Disint. Tablet (Zofran Odt T (10/24/24 08:35) Ua W/Microscopic, Cult If Ind (10/24/24 08:26) Medications Received in ER Medications (Trade) Dose Ordered Sig/Claribel Route PRN Reason Start Time Stop Time Status Last Admin Dose Admin (Pyridium tablet) 200 mg ONCE ONCE PO 10/24/24 08:35 10/24/24 08:36 DC 10/24/24 08:43 200 MG (Toradol inj. 30mg/ml) 30 mg ONCE ONCE IM 10/24/24 08:35 10/24/24 08:36 DC 10/24/24 08:44 30 MG (Zofran ODT tablet) 4 mg ONCE ONCE PO 10/24/24 08:35 10/24/24 08:36 DC 10/24/24 08:45 4 MG Vital Signs 10/24/24 10/24/24 10/24/24 10/24/24 08:16 08:32 08:37 08:44 Temp 98.1 98.1 Pulse 80 80 Resp 19 16 16 B/P (MAP) 100/73 122/75 (91) Pulse Ox 100 98 O2 Flow Rate 0 Laboratory Tests Test 10/24/24 08:26 Urine Specimen Description Cln catch midstream Urine Color Yellow Urine Clarity Slightly cloudy Urine pH 5.5 Urine Specific [place] >=1.030 Urine Protein 100 H Urine Glucose (UA) 100 H Urine Ketones Trace H Urine Occult Blood Moderate H Urine Nitrite Negative Urine Bilirubin Small Urine Urobilinogen 1.0 Urine Leukocyte Esterase Negative Urine RBC 10-20 Urine WBC 20-30 H Urine Squamous Epithelial Cells Moderate Urine Bacteria 1+ Urine Hyaline Casts 10-30 Urine Mucus Moderate Urine Culture Indicated Indicated Volume Urine Centrifuged 7 ml Urine HCG, Qualitative Negative Urine Comment Low volume Medical Decision Making Additional Comment 54-year-old female with a history of recurrent urinary tract infections of unknown cause. She needs to see her primary care provider request a referral to zoology professor or Urology. No signs of sepsis today, no elevated white blood cell count on lab work that was obtained yesterday. Urine does appear infected. She was treated with ceftriaxone 1 g IM in the ER and will complete a course of Bactrim DS p.o. b.i.d. x5 days. Follow up with primary care soon, they should follow the results of the culture. Return if worse. Departure Time of Disposition: 09:18 Disposition: 01 HOME / SELF CARE / HOMELESS Impression: Primary Impression: Acute urinary tract infection Condition: Stable Discharge Instructions: Urinary Tract Infection, Adult Additional Instructions: Your blood work from yesterday was reviewed and overall normal. Your urine today does again look infected. It is very important that you see your primary care provider soon and request a referral to gyno-urology. Meanwhile, continue your current measures that include staying well hydrated, rinsing after urinating, and taking your premarin as prescribed. Please see your primary care provider within a week. Please return if worse. Have your primary care provider check on your urine culture results in about 48 hrs to make sure that the correct antibiotic was chosen for your treatment. Referrals: NO PRIMARY CARE PROVIDER (PCP) Prescriptions Sulfamethoxazole/Trimethoprim (Bactrim Ds Tablet) 800 Mg-160 Mg Tablet 1 TAB PO Q12H for 5 Days, #10 TAB Prov: CHELSEA ALCANTAR NP 10/24/24 Phenazopyridine Hcl (Pyridium tablet) 100 Mg Tablet 1 TAB PO Q8H for urinary discomfort for 2 Days, #6 TAB 0 Refills Prov: CHELSEA ALCANTAR NP 10/24/24 Ondansetron 8mg ODT (Ondansetron Odt) 8 Mg Tab.rapdis 1 TAB PO TID PRN for nausea/vomiting, #10 TAB Prov: CHELSEA ALCANTAR NP 10/24/24 Education Educated: Patient Educated regarding: diagnosis, treatment, prognosis, need for follow up Signature Scribe Signature: x Attestation: The note accurately reflects work and decisions made by me.Chelsea Elizondo NP 10/24/24 08:37 CHELSEA ALCANTAR NP Oct 24, 2024 08:37
[2024-10-24] MEDS: phenazopyridine 100mg tablet PO ONE (08:43)
[2024-10-24] MEDS: ketorolac trometh 30MG/ML vial 30 MG/ML VIAL IM ONE (08:44)
[2024-10-24] MEDS: ondansetron 4mg rapidly disintigrating tab PO ONE (08:45)
[2024-10-24 08:48] LABS: URINE HCG NEGATIVE (NEG)
[2024-10-24 08:50] LABS: LEUKOCYTE ESTERASE ,URINE NEGATIVE (Neg); OCCULT BLOOD,URINE MODERATE (Neg)
[2024-10-24 08:56] LABS: NITRITES, URINE NEGATIVE (Neg); UA COLLECTION TYPE CLN CATCH MIDSTREAM
[2024-10-24 09:02] LABS: MUCUS STRANDS MODERATE /LPF (Neg); SQUAMOUS EPITHELIAL CELL,UR MODERATE /LPF (FEW)
[2024-10-24] MEDS ORDERED: PHEN-786 PO (09:21)
[2024-10-24] MEDS ORDERED: SULF1TAB49 PO (09:21)
[2024-10-24] MEDS ORDERED: ONDA-245 PO (09:21)
[2024-10-24] MEDS: CefTRIAXone 1000mg IM Kit (w/lidocaine diluent) IM ONE (09:30)
[2024-10-24 09:37] VITALS: BP 125/76; PULSE 73; RESP 16; TEMP 98.1; O2SAT 99
== END 2024-10-24 09:40 | disposition home or self-care (01) ==
LOC: ER 08:06
DX: N39.0 Urinary tract infection, site not specified (principal); E11.42 Type 2 diabetes mellitus with diabetic polyneuropathy; E11.65 Type 2 diabetes mellitus with hyperglycemia; E78.00 Pure hypercholesterolemia, unspecified; I10 Essential (primary) hypertension; J45.909 Unspecified asthma, uncomplicated; K21.9 Gastro-esophageal reflux disease without esophagitis; F41.9 Anxiety disorder, unspecified; F32.A Depression, unspecified; Z90.49 Acquired absence of other specified parts of digestive tract; Z88.8 Allergy status to other drugs, medicaments and biological substances; Z79.899 Other long term (current) drug therapy; Z79.82 Long term (current) use of aspirin; Z56.0 Unemployment, unspecified
CPT/HCPCS: 36415; 81001; 81025; 87088; 87491; 87591; 96372; 99284; J0696; J1885

== ENCOUNTER 2025-01-15 10:34 | Emergency (ER) | payer MEDICAID ==
[~2025-01-15] VITALS: Ht 160 cm; Wt 71.4 kg
[~2025-01-15 10:34] MED LIST changes: +ONDA-245 PO; +PHEN-786 PO
[2025-01-15 10:37] VITALS: BP 130/69; PULSE 87; RESP 16; TEMP 98.4; O2SAT 99
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
[2025-01-15 11:36] LABS: MEAN PLATELET VOLUME 6.6 FL (7.4-10.4); RED CELL DISTRIBUTION WIDTH 12.9 % (11.5-14.5)
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
[2025-01-15 11:56] LABS: CREATININE 0.70 MG/DL (0.40-0.90); TOTAL CARBON DIOXIDE 29.8 MMOL/L (24-32); eCRCL 78 ML/MIN; eGFR 88 ML/MIN
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
== END 2025-01-15 13:01 | disposition home or self-care (01) ==
LOC: ER 10:36
DX: M54.50 Low back pain, unspecified (principal); M54.2 Cervicalgia; M62.838 Other muscle spasm; G89.11 Acute pain due to trauma; E11.42 Type 2 diabetes mellitus with diabetic polyneuropathy; E78.00 Pure hypercholesterolemia, unspecified; K21.9 Gastro-esophageal reflux disease without esophagitis; F41.9 Anxiety disorder, unspecified; F32.A Depression, unspecified; G89.29 Other chronic pain; I10 Essential (primary) hypertension; J45.909 Unspecified asthma, uncomplicated; Z88.8 Allergy status to other drugs, medicaments and biological substances; Z90.49 Acquired absence of other specified parts of digestive tract; Z87.440 Personal history of urinary (tract) infections; Z79.82 Long term (current) use of aspirin; Z79.899 Other long term (current) drug therapy; Z56.0 Unemployment, unspecified; V49.9XXA Car occupant (driver) (passenger) injured in unspecified traffic accident, initial encounter; Y93.89 Activity, other specified; Y92.89 Other specified places as the place of occurrence of the external cause; Y99.8 Other external cause status
CPT/HCPCS: 36415; 72125; 72128; 72131; 72220; 73030; 80053; 85025; 99284